=== PATIENT | female | born 1945 | race Caucasian/White ===

== ENCOUNTER 2021-03-17 13:24 | Inpatient (IN) | payer MEDICARE, OTHER ==
[2021-03-17] MEDS ORDERED: Zofran 4 MG/2 ML VIAL IV ONE (13:41)
[2021-03-17] MEDS ORDERED: Hydromorphone 1 mg/ml Injection IV ONE (13:41)
[2021-03-17] MEDS ORDERED: Sodium Chloride 0.9% 1000 ML 1,000 ML IV STA (13:41)
[2021-03-17 14:13] LABS: Absolute Neutrophil Ct (ANC) 18.41 (1.4-6.9); BASOPHIL % 0.1 % (0.0-0.4); Basophil (Absolute #) 0.02 (0-0.4); Eosinophil (Absolute #) 0 (0-0.5); Hematocrit 47.6 % (35-47); Hemoglobin 16.4 gm/dl (12.0-16.0); Lymphocyte (Absolute #) 0.41 (1.0-4.6); Mean Cell Volume 104.6 fl (78-100); Mean Corpuscular Hgb Concent. 34.5 g/dl (32-36); Mean Platelet Volume 10.1 fl (7.5-11.0); Monocyte (Absolute #) 1.32 (0.0-1.3); Monocytes % 6.5 % (0.0-12.0); Neutrophil % 91.4 % (36.0-66.0); Platelet Count 288 K/mm3 (150-450); Red Blood Count 4.55 M/mm3 (4.1-5.4); Red Cell Distribution Width 15.1 % (11.5-14.0); White Blood Count 20.2 K/mm3 (4.0-10.5)
[2021-03-17] MEDS ORDERED: Zofran 4 MG/2 ML VIAL ONE (14:14)
[2021-03-17] MEDS ORDERED: Hydromorphone 1 mg/ml Injection ONE (14:15)
[2021-03-17] MEDS ORDERED: Sodium Chloride 0.9% 1000 ML 1,000 ML ONE (14:15)
--- NOTE | 2021-03-17 14:16 | XRAY ---
Indication: Abdomen pain, nausea, and vomiting. Comparison: October 23, 2019. Portable apical lordotic chest remains clear. Heart not enlarged again with tortuous descending aorta. Bony thorax intact again with mild degenerative changes, double curvature scoliosis, and incompletely visualized lumbar fusion hardware. Impression: Continued nonacute chest with chronic features.
[2021-03-17 14:57] LABS: Slide Review 1 YES
[2021-03-17 14:59] LABS: ALBUMIN 5.4 g/dL (3.5-5.0); ALKALINE PHOSPHATASE 65 U/L (38-126); AMYLASE 56 U/L (30-110); ANION GAP 20.2 MEQ/L (5-15); BLOOD UREA NITROGEN 25 mg/dL (7-17); CHLORIDE 99 mmol/L (98-107); Carbon Dioxide 24 mmol/L (22-30); Creatinine 1 0.72 mg/dL (0.52-1.04); EST GLOMERULAR FILTRATION RATE > 60.0 ML/MIN; Glucose 168 mg/dL (74-106); LIPASE 37 U/L (23-300); SGOT/AST 32 U/L (14-36); SGPT/ALT 18 U/L (0-35); SODIUM 138 mmol/L (137-145); Total Protein 8.8 g/dL (6.3-8.2)
--- NOTE | 2021-03-17 16:28 | XRAY ---
Indication: Abdomen pain, constipation, nausea, and vomiting. Multiple contiguous axial images obtained through the abdomen and pelvis using 80 cc Isovue 370 contrast. Comparison: None Lung bases demonstrates mild scattered subsegmental atelectasis/scarring. No infiltrate or effusion. Heart not enlarged. Stomach and small bowel loops are markedly distended with small bowel loops up to 4.3 cm diameter with asynchronous fluid leveling favoring small bowel obstruction. Transition point mid pelvis. Right hemicolon demonstrates mild fecal debris and bowel gas. Appendectomy and hysterectomy reported. No free fluid/air. Right kidney demonstrates at least 3 cysts, largest in the upper pole measuring 2.3 cm. Remaining liver, gallbladder, pancreas, spleen, adrenal glands, kidneys, ureters, and bladder are unremarkable. Mild scattered aortoiliac calcifications. No AAA or pathological retroperitoneal lymphadenopathy. Osseous structures demonstrates osteopenia, mild dextrorotoscoliosis centered at L3, mild/moderate multilevel thoracolumbar degenerative spondylosis, minimal grade 1 L3/L4 spondylolisthesis, L3-L4 posterior fusion with intact hardware, right hip arthroplasty with intact bipolar prosthesis/acetabular screw, and mild left hip degenerative arthropathy. Impression: 1. CT findings as detailed favoring distal small bowel obstruction. 2. Incidental right renal cysts and chronic bony findings.
--- NOTE | 2021-03-17 16:43 | ERPHSYRPT ---
- History of Present Illness Time Seen by Provider: 03/17/21 13:35 Historian: patient Exam Limitations: no limitations Patient Subjective Stated Complaint: Pt states that she woke up this am at approx 0300 vomiting, she states that she has vomited approx 10 times, pain to her RUQ Triage Nursing Assessment: Pt brought to the ER by her son, tachypnea, rates abdominal pain as 4/10, abdomen distended x2 days, pain to RUQ and tender to RLQ with palpatation, pulses normal, skin n/w/d Physician History: Patient is a 75-year-old female who has had abdominal distention and some pain for approximately 3 days. She started vomiting at 3 AM has vomited at least 10 times today. She denies any fever chills but says she has had sweats. Patient states she has not been passing gas or having bowel movements. Timing/Duration: day(s) (3), worse Activities at Onset: none Quality: cramping, pressure Abdominal Pain Onset Location: generalized abdomen Pain Radiation: no radiation Severity of Pain-Max: severe Severity of Pain-Current: moderate Modifying Factors: Improves With: vomiting Associated Symptoms: vomiting Previous symptoms: no prior history Allergies/Adverse Reactions: No Known Drug Allergies Allergy (Verified 03/17/21 13:32) Home Medications: Acetaminophen 500 mg [Tylenol Extra Strength 500 mg] 1 tab PO Q4HPRN PRN 10/15/13 [History] Calcium Carbonate/Vitamin D3 [Calcium 600 + Vit D Tablet] 1 each PO DAILY 10/15/13 [History] Celecoxib [Celebrex] 200 mg PO DAILY 10/15/13 [History] Fiber [Fiber Off] 1 each PO DAILY 10/15/13 [History] Levothyroxine Sodium 50 Mcg [Synthroid 50 Mcg] 50 mcg PO DAILY 10/15/13 [History] Methocarbamol 2 tab PO BID PRN 10/15/13 [History] Multivit with Calcium,Iron,Min [Women's Daily Multivitamin] 1 each PO DAILY 10/15/13 [History] PANTOPRAZOLE 40 mg Tablet [Protonix 40MG Tablet] 40 mg PO DAILY 10/15/13 [History] Simvastatin 40 mg [Zocor 40 mg] 40 mg PO DAILY 10/15/13 [History] Imipramine HCl 150 mg PO QHS 12/11/17 [History] Methotrexate Sodium 2.5 mg [Trexall 2.5 mg] 15 mg PO DAILY 12/11/17 [History] Aspirin EC 81 mg [Ecotrin 81 mg] 81 mg PO DAILY 03/17/21 [History] Fluticasone/Vilanterol [Breo Ellipta 100-25 Mcg INH] 1 inh PO UD 03/17/21 [History] Losartan Potassium [Cozaar] 25 mg PO DAILY 03/17/21 [History] Omeprazole 40 mg PO DAILY 03/17/21 [History] Oxybutynin Chloride 5 mg PO TID 03/17/21 [History] Travel Risk - International Travel Have you traveled outside of the country in past 3 weeks: No - Coronavirus Screening Are you exhibiting any of the following symptoms?: No Close contact with a COVID-19 positive Pt in past 14-21 Days: No - Vaccine Status Have you recieved a Covid-19 vaccination: Yes [employer] 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[employer] - Vaccination Dates Date of 2cond Vaccination (if applicable): 10/2020 - Review of Systems Constitutional: Night Sweats Eyes: No Symptoms Ears, Nose, & Throat: No Symptoms Respiratory: No Cough, No Dyspnea Cardiac: No Chest Pain, No Edema, No Syncope Abdominal/Gastrointestinal: Abdominal Pain, Nausea, Vomiting, Other (Distention) Genitourinary Symptoms: No Dysuria Musculoskeletal: No Back Pain, No Neck Pain Skin: No Rash Neurological: No Dizziness, No Focal Weakness, No Sensory Changes Psychological: No Symptoms Endocrine: No Symptoms Hematologic/Lymphatic: No Symptoms Immunological/Allergic: No Symptoms All Other Systems: Reviewed and Negative - Past Medical History Pertinent Past Medical History: Yes Neurological History: No Pertinent History ENT History: No Pertinent History Cardiac History: No Pertinent History Respiratory History: COPD Endocrine Medical History: Hypothyroidism Musculoskeletal History: Arthritis GI Medical History: GERD History: No Pertinent History Psycho-Social History: Anxiety Female Reproductive Disorders: Other - Past Surgical History Past Surgical History: Yes Neuro Surgical History: No Pertinent History Cardiac: No Pertinent History Respiratory: No Pertinent History Gastrointestinal: Appendectomy Genitourinary: No Pertinent History Musculoskeletal: Orthopedic Surgery Female Surgical History: Hysterectomy, Tubal Ligation Other Surgical History: back surgery x two{ stenosis},left foot nerve release,le ft hand trigger finger release,A&P repair-colporrhaphy,childbirth x two - Social History Smoking Status: Current every day smoker How long have you smoked: 40 Exposure to second hand smoke: Yes Drug Use: none Patient Lives Alone: Yes - Female History Hx Now: No - Nursing Vital Signs Nursing Vital Signs: Initial Vital Signs Temperature 96.8 F 03/17/21 13:25 Pulse Rate 86 03/17/21 13:25 Respiratory Rate 28 H 03/17/21 13:25 O2 Sat by Pulse Oximetry 97 03/17/21 13:25 Pain Scale Pain Intensity 3 - Physical Exam General Appearance: mild distress Eye Exam: PERRL/EOMI, eyes nml inspection Ears, Nose, Throat Exam: normal ENT inspection, pharynx normal, moist mucous membranes Neck Exam: normal inspection, non-tender, supple, full range of motion Respiratory Exam: normal breath sounds, lungs clear, No respiratory distress Cardiovascular Exam: regular rate/rhythm, normal heart sounds Gastrointestinal/Abdomen Exam: tenderness, distention, guarding, rebound, No normal bowel sounds Pelvic Exam: not done Rectal Exam: deferred Back Exam: normal inspection, normal range of motion Extremity Exam: normal inspection, normal range of motion Neurologic Exam: alert, oriented x 3, cooperative Skin Exam: normal color, warm, dry Lymphatic Exam: adenopathy SpO2 Interpretation: normal SpO2: 92 O2 Delivery: Room Air - Course Nursing assessment & vital signs reviewed: Yes EKG Interpreted by Me: RATE (88), Sinus Rhythm, NORMAL AXIS, NORMAL INTERVALS, NORMAL QRS, Other (Recurrent PVCs) - Radiology Exams Chest X-ray Interpretation: Other (X-ray shows no acute finding only chronic changes.) - CT Exams Abdomen/Pelvis CT Interpretation: Other (CT scan of the abdomen pelvis shows a small bowel obstruction distally) Ordered Tests: Active Orders 24 hr Category Date Time Status EKG-ER Only STAT Care 03/17/21 13:41 Active IV Insertion STAT Care 03/17/21 13:41 Active ABDOMEN AND PELVIS W CONTRAST [CT] Routine Exams 03/17/21 15:44 Completed CHEST 1 VIEW (PORTABLE) Stat Exams 03/17/21 13:42 Completed AMYLASE Stat Lab 03/17/21 14:00 Completed CBC W DIFF Stat Lab 03/17/21 14:00 Completed CMP Stat Lab 03/17/21 14:00 Completed LIPASE Stat Lab 03/17/21 14:00 Completed Lactic Acid Stat Lab 03/17/21 13:41 Completed TROPONIN Q3H Lab 03/17/21 14:00 Completed TROPONIN Q3H Lab 03/17/21 16:45 Ordered TROPONIN Q3H Lab 03/17/21 19:45 Ordered TROPONIN Q3H Lab 03/17/21 22:45 Ordered TROPONIN Q3H Lab 03/18/21 01:45 Ordered UA W/RFX UR CULTURE Stat Lab 03/17/21 13:42 Ordered Medication Summary Discontinued Medications Generic Name Dose Route Start Last Admin Trade Name Freq PRN Reason Stop Dose Admin Hydromorphone HCl 1 mg 03/17/21 13:41 03/17/21 14:20 Hydromorphone 1 Mg/Ml Injection IV 03/17/21 13:42 1 mg STAT ONE Administration Hydromorphone HCl Confirm 03/17/21 14:15 Hydromorphone 1 Mg/Ml Injection Administered 03/17/21 14:16 Dose 1 mg .ROUTE .STK-MED ONE Sodium Chloride 1,000 mls @ 999 mls/hr 03/17/21 13:41 03/17/21 14:18 Sodium Chloride 0.9% 1000 Ml IV 03/17/21 14:41 999 mls/hr .Q1H1M STA Administration Sodium Chloride Confirm 03/17/21 14:15 Sodium Chloride 0.9% 1000 Ml Administered 03/17/21 14:16 Dose 1,000 mls @ ud .ROUTE .STK-MED ONE Ondansetron HCl 4 mg 03/17/21 13:41 03/17/21 14:19 Zofran 4 Mg/2 Ml Vial IV 03/17/21 13:42 4 mg STAT ONE Administration Ondansetron HCl Confirm 03/17/21 14:14 Zofran 4 Mg/2 Ml Vial Administered 03/17/21 14:15 Dose 4 mg .ROUTE .STK-MED ONE Lab/Rad Data: Laboratory Result Diagrams 03/17/21 14:00 03/17/21 14:00 Laboratory Results 03/17/21 03/17/21 03/17/21 Range/Units Unknown 14:00 14:00 WBC (4.0-10.5) K/mm3 RBC (4.1-5.4) M/mm3 Hgb (12.0-16.0) gm/dl Hct (35-47) % MCV (78-100) fl MCH (26-32) pg MCHC (32-36) g/dl RDW (11.5-14.0) % Plt Count (150-450) K/mm3 MPV (7.5-11.0) fl Gran % (36.0-66.0) % Eos # (Auto) (0-0.5) Absolute Lymphs (auto) (1.0-4.6) Absolute Monos (auto) (0.0-1.3) Lymphocytes % (24.0-44.0) % Monocytes % (0.0-12.0) % Eosinophils % (0.00-5.0) % Basophils % (0.0-0.4) % Absolute Granulocytes (1.4-6.9) Basophils # (0-0.4) Sodium 138 (137-145) mmol/L Potassium 5.0 (3.5-5.1) mmol/L Chloride 99 (98-107) mmol/L Carbon Dioxide 24 (22-30) mmol/L Anion Gap 20.2 H (5-15) MEQ/L BUN 25 H (7-17) mg/dL Creatinine 0.72 (0.52-1.04) mg/dL Estimated GFR > 60.0 ML/MIN Glucose 168 H (74-106) mg/dL Lactic Acid (0.4-2.0) Calcium 11.0 H (8.4-10.2) mg/dL Total Bilirubin 0.50 (0.2-1.3) mg/dL AST 32 (14-36) U/L ALT 18 (0-35) U/L Alkaline Phosphatase 65 (38-126) U/L Troponin I < 0.012 (0.000-0.034) ng/mL Serum Total Protein 8.8 H (6.3-8.2) g/dL Albumin 5.4 H (3.5-5.0) g/dL Amylase 56 (30-110) U/L Lipase 37 (23-300) U/L SARS-CoV-2 (PCR) NEGATIVE (NEGATIVE) Slides for Path Review 03/17/21 03/17/21 Range/Units 14:00 13:41 WBC 20.2 H (4.0-10.5) K/mm3 RBC 4.55 (4.1-5.4) M/mm3 Hgb 16.4 H (12.0-16.0) gm/dl Hct 47.6 H (35-47) % MCV 104.6 H (78-100) fl MCH 36.0 H (26-32) pg MCHC 34.5 (32-36) g/dl RDW 15.1 H (11.5-14.0) % Plt Count 288 (150-450) K/mm3 MPV 10.1 (7.5-11.0) fl Gran % 91.4 H (36.0-66.0) % Eos # (Auto) 0 (0-0.5) Absolute Lymphs (auto) 0.41 L (1.0-4.6) Absolute Monos (auto) 1.32 H (0.0-1.3) Lymphocytes % 2.0 L (24.0-44.0) % Monocytes % 6.5 (0.0-12.0) % Eosinophils % 0.0 (0.00-5.0) % Basophils % 0.1 (0.0-0.4) % Absolute Granulocytes 18.41 H (1.4-6.9) Basophils # 0.02 (0-0.4) Sodium (137-145) mmol/L Potassium (3.5-5.1) mmol/L Chloride (98-107) mmol/L Carbon Dioxide (22-30) mmol/L Anion Gap (5-15) MEQ/L BUN (7-17) mg/dL Creatinine (0.52-1.04) mg/dL Estimated GFR ML/MIN Glucose (74-106) mg/dL Lactic Acid 1.8 (0.4-2.0) Calcium (8.4-10.2) mg/dL Total Bilirubin (0.2-1.3) mg/dL AST (14-36) U/L ALT (0-35) U/L Alkaline Phosphatase (38-126) U/L Troponin I (0.000-0.034) ng/mL Serum Total Protein (6.3-8.2) g/dL Albumin (3.5-5.0) g/dL Amylase (30-110) U/L Lipase (23-300) U/L SARS-CoV-2 (PCR) (NEGATIVE) Slides for Path Review YES - Progress Progress: unchanged Discussed with : James Will see patient in: hospital (full admit) - Departure Departure Disposition: In-patient Admission Clinical Impression: Small bowel obstruction Condition: Fair Critical Care Time: No Referrals: SARAH MATT [Primary Care Provider] -
--- NOTE | 2021-03-17 18:28 | PCM.CONS ---
History of Present Illness - Reason for Consult Chief Complaint: SBO Requesting Provider: NATI COOK Consulting Provider: LINDY PIMENTEL MD History of Present Illness: hx per chart review, d/w pt 1 day and pain progressive obstructive sx. nausea nbnb emesis today. last bm 03/16. no flatus today. hx uterine prolapse surgery, then later hysterectomy. no bowel surgeries. no admissions for SBO. pain is improved since ng placement. methotrexate for arthritis "- History of Present Illness Time Seen by Provider: 03/17/21 13:35 Historian: patient Exam Limitations: no limitations Patient Subjective Stated Complaint: Pt states that she woke up this am at approx 0300 vomiting, she states that she has vomited approx 10 times, pain to her RUQ Triage Nursing Assessment: Pt brought to the ER by her son, tachypnea, rates abdominal pain as 4/10, abdomen distended x2 days, pain to RUQ and tender to RLQ with palpatation, pulses normal, skin n/w/d Physician History: Patient is a 75-year-old female who has had abdominal distention and some pain for approximately 3 days. She started vomiting at 3 AM has vomited at least 10 times today. She denies any fever chills but says she has had sweats. Patient states she has not been passing gas or having bowel movements. Timing/Duration: day(s) (3), worse Activities at Onset: none Quality: cramping, pressure Abdominal Pain Onset Location: generalized abdomen Pain Radiation: no radiation Severity of Pain-Max: severe Severity of Pain-Current: moderate Modifying Factors: Improves With: vomiting Associated Symptoms: vomiting Previous symptoms: no prior history Allergies/Adverse Reactions: No Known Drug Allergies Allergy (Verified 03/17/21 13:32) Home Medications: Acetaminophen 500 mg [Tylenol Extra Strength 500 mg] 1 tab PO Q4HPRN PRN 10/15/13 [History] Calcium Carbonate/Vitamin D3 [Calcium 600 + Vit D Tablet] 1 each PO DAILY 10/15/13 [History] Celecoxib [Celebrex] 200 mg PO DAILY 10/15/13 [History] Fiber [Fiber Off] 1 each PO DAILY 10/15/13 [History] Levothyroxine Sodium 50 Mcg [Synthroid 50 Mcg] 50 mcg PO DAILY 10/15/13 [History] Methocarbamol 2 tab PO BID PRN 10/15/13 [History] Multivit with Calcium,Iron,Min [Women's Daily Multivitamin] 1 each PO DAILY 10/15/13 [History] PANTOPRAZOLE 40 mg Tablet [Protonix 40MG Tablet] 40 mg PO DAILY 10/15/13 [History] Simvastatin 40 mg [Zocor 40 mg] 40 mg PO DAILY 10/15/13 [History] Imipramine HCl 150 mg PO QHS 12/11/17 [History] Methotrexate Sodium 2.5 mg [Trexall 2.5 mg] 15 mg PO DAILY 12/11/17 [History] Aspirin EC 81 mg [Ecotrin 81 mg] 81 mg PO DAILY 03/17/21 [History] Fluticasone/Vilanterol [Breo Ellipta 100-25 Mcg INH] 1 inh PO UD 03/17/21 [History] Losartan Potassium [Cozaar] 25 mg PO DAILY 03/17/21 [History] Omeprazole 40 mg PO DAILY 03/17/21 [History] Oxybutynin Chloride 5 mg PO TID 03/17/21 [History] Travel Risk - International Travel Have you traveled outside of the country in past 3 weeks: No - Coronavirus Screening Are you exhibiting any of the following symptoms?: No Close contact with a COVID-19 positive Pt in past 14-21 Days: No - Vaccine Status Have you recieved a Covid-19 vaccination: Yes 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 Dates Date of 2cond Vaccination (if applicable): 10/2020 - Review of Systems Constitutional: Night Sweats Eyes: No Symptoms Ears, Nose, & Throat: No Symptoms Respiratory: No Cough, No Dyspnea Cardiac: No Chest Pain, No Edema, No Syncope Abdominal/Gastrointestinal: Abdominal Pain, Nausea, Vomiting, Other (Distention) Genitourinary Symptoms: No Dysuria Musculoskeletal: No Back Pain, No Neck Pain Skin: No Rash Neurological: No Dizziness, No Focal Weakness, No Sensory Changes Psychological: No Symptoms Endocrine: No Symptoms Hematologic/Lymphatic: No Symptoms Immunological/Allergic: No Symptoms All Other Systems: Reviewed and Negative - Past Medical History Pertinent Past Medical History: Yes Neurological History: No Pertinent History ENT History: No Pertinent History Cardiac History: No Pertinent History Respiratory History: COPD Endocrine Medical History: Hypothyroidism Musculoskeletal History: Arthritis GI Medical History: GERD History: No Pertinent History Psycho-Social History: Anxiety Female Reproductive Disorders: Other - Past Surgical History Past Surgical History: Yes Neuro Surgical History: No Pertinent History Cardiac: No Pertinent History Respiratory: No Pertinent History Gastrointestinal: Appendectomy Genitourinary: No Pertinent History Musculoskeletal: Orthopedic Surgery Female Surgical History: Hysterectomy, Tubal Ligation Other Surgical History: back surgery x two{ stenosis},left foot nerve release,left hand trigger finger release,A&P repair-colporrhaphy,childbirth x two - Social History Smoking Status: Current every day smoker How long have you smoked: 40 Exposure to second hand smoke: Yes Drug Use: none Patient Lives Alone: Yes - Female History Hx Now: No - Nursing Vital Signs Nursing Vital Signs: ". Medications & Allergies Home Medications: Home Medication List Acetaminophen 500 mg [Tylenol Extra Strength 500 mg] 1 tab PO Q4HPRN PRN 10/15/13 [History Confirmed 03/17/21] Calcium Carbonate/Vitamin D3 [Calcium 600 + Vit D Tablet] 1 each PO DAILY 10/15/13 [History Confirmed 03/17/21] Celecoxib [Celebrex] 200 mg PO DAILY 10/15/13 [History Confirmed 03/17/21] Fiber [Fiber Off] 1 each PO DAILY 10/15/13 [History Confirmed 03/17/21] Levothyroxine Sodium 50 Mcg [Synthroid 50 Mcg] 50 mcg PO DAILY 10/15/13 [History Confirmed 03/17/21] Methocarbamol 2 tab PO BID PRN 10/15/13 [History Confirmed 03/17/21] Multivit with Calcium,Iron,Min [Women's Daily Multivitamin] 1 each PO DAILY 10/15/13 [History Confirmed 03/17/21] PANTOPRAZOLE 40 mg Tablet [Protonix 40MG Tablet] 40 mg PO DAILY 10/15/13 [History Confirmed 03/17/21] Simvastatin 40 mg [Zocor 40 mg] 40 mg PO DAILY 10/15/13 [History Confirmed 03/17/21] Imipramine HCl 150 mg PO QHS 12/11/17 [History Confirmed 03/17/21] Methotrexate Sodium 2.5 mg [Trexall 2.5 mg] 15 mg PO DAILY 12/11/17 [History Confirmed 03/17/21] Aspirin EC 81 mg [Ecotrin 81 mg] 81 mg PO DAILY 03/17/21 [History Confirmed 03/17/21] Fluticasone/Vilanterol [Breo Ellipta 100-25 Mcg INH] 1 inh PO UD 03/17/21 [History Confirmed 03/17/21] Losartan Potassium [Cozaar] 25 mg PO DAILY 03/17/21 [History Confirmed 03/17/21] Omeprazole 40 mg PO DAILY 03/17/21 [History Confirmed 03/17/21] Oxybutynin Chloride 5 mg PO TID 03/17/21 [History Confirmed 03/17/21] Allergies/Adverse Reactions: Allergies Allergy/AdvReac Type Severity Reaction Status Date / Time No Known Drug Allergies Allergy Verified 03/17/21 13:32 - Past Medical History Past Medical History: Yes Neurological History: No Pertinent History ENT History: No Pertinent History Cardiac History: No Pertinent History Respiratory History: COPD Endocrine Medical History: Hypothyroidism Musculoskelatal History: Arthritis GI Medical History: GERD History: No Pertinent History Pyscho-Social History: Anxiety Reproductive Disorders: Other - Female History Are you now?: No - Past Surgical History Past Surgical History: Yes Neuro Surgical History: No Pertinent History Cardiac History: No Pertinent History Respiratory Surgery: No Pertinent History GI Surgical History: Appendectomy Genitourinary Surgical Hx: No Pertinent History Musculskeletal Surgical Hx: Orthopedic Surgery Female Surgical History: Hysterectomy, Tubal Ligation Other Surgical History: back surgery x two{ stenosis},left foot nerve release,left hand trigger finger release,A&P repair-colporrhaphy,childbirth x two - Social History Smoking Status: Current every day smoker How long have you smoked: 40 Exposure to second hand smoke: Yes Alcohol: None Drug Use: none - Physical Exam Vital Signs: Vital Signs - 24 hr Temp Pulse Resp BP Pulse Ox 03/17/21 18:10 98.2 F 88 20 137/70 94 L 03/17/21 17:10 74 18 92 L 03/17/21 16:46 92 L 03/17/21 16:46 86 18 151/91 98 03/17/21 14:39 93 H 24 131/85 92 L 03/17/21 14:26 91 H 24 90 L 03/17/21 13:25 96.8 F 86 28 H 97 General Appearance: no apparent distress Neurologic Exam: alert, oriented x 3, cooperative Eye Exam: eyes nml inspection, No scleral icterus Ears, Nose, Throat Exam: normal ENT inspection Neck Exam: normal inspection Respiratory Exam: No respiratory distress, No accessory muscle use Cardiovascular Exam: regular rate/rhythm Gastrointestinal/Abdomen Exam: soft, distention, No tenderness Pelvic Exam: not done Rectal Exam: deferred Extremity Exam: normal inspection Skin Exam: normal color Results - Labs Lab/Micro Results: Lab Results-Last 24 Hours 03/17/21 03/17/21 03/17/21 Range/Units 13:41 14:00 14:00 WBC 20.2 H (4.0-10.5) K/mm3 RBC 4.55 (4.1-5.4) M/mm3 Hgb 16.4 H (12.0-16.0) gm/dl Hct 47.6 H (35-47) % MCV 104.6 H (78-100) fl MCH 36.0 H (26-32) pg MCHC 34.5 (32-36) g/dl RDW 15.1 H (11.5-14.0) % Plt Count 288 (150-450) K/mm3 MPV 10.1 (7.5-11.0) fl Gran % 91.4 H (36.0-66.0) % Eos # (Auto) 0 (0-0.5) Absolute Lymphs (auto) 0.41 L (1.0-4.6) Absolute Monos (auto) 1.32 H (0.0-1.3) Lymphocytes % 2.0 L (24.0-44.0) % Monocytes % 6.5 (0.0-12.0) % Eosinophils % 0.0 (0.00-5.0) % Basophils % 0.1 (0.0-0.4) % Absolute Granulocytes 18.41 H (1.4-6.9) Basophils # 0.02 (0-0.4) Sodium 138 (137-145) mmol/L Potassium 5.0 (3.5-5.1) mmol/L Chloride 99 (98-107) mmol/L Carbon Dioxide 24 (22-30) mmol/L Anion Gap 20.2 H (5-15) MEQ/L BUN 25 H (7-17) mg/dL Creatinine 0.72 (0.52-1.04) mg/dL Estimated GFR > 60.0 ML/MIN Glucose 168 H (74-106) mg/dL Lactic Acid 1.8 (0.4-2.0) Calcium 11.0 H (8.4-10.2) mg/dL Total Bilirubin 0.50 (0.2-1.3) mg/dL AST 32 (14-36) U/L ALT 18 (0-35) U/L Alkaline Phosphatase 65 (38-126) U/L Troponin I (0.000-0.034) ng/mL Serum Total Protein 8.8 H (6.3-8.2) g/dL Albumin 5.4 H (3.5-5.0) g/dL Amylase 56 (30-110) U/L Lipase 37 (23-300) U/L SARS-CoV-2 (PCR) (NEGATIVE) Slides for Path Review YES 03/17/21 03/17/21 Range/Units 14:00 Unknown WBC (4.0-10.5) K/mm3 RBC (4.1-5.4) M/mm3 Hgb (12.0-16.0) gm/dl Hct (35-47) % MCV (78-100) fl MCH (26-32) pg MCHC (32-36) g/dl RDW (11.5-14.0) % Plt Count (150-450) K/mm3 MPV (7.5-11.0) fl Gran % (36.0-66.0) % Eos # (Auto) (0-0.5) Absolute Lymphs (auto) (1.0-4.6) Absolute Monos (auto) (0.0-1.3) Lymphocytes % (24.0-44.0) % Monocytes % (0.0-12.0) % Eosinophils % (0.00-5.0) % Basophils % (0.0-0.4) % Absolute Granulocytes (1.4-6.9) Basophils # (0-0.4) Sodium (137-145) mmol/L Potassium (3.5-5.1) mmol/L Chloride (98-107) mmol/L Carbon Dioxide (22-30) mmol/L Anion Gap (5-15) MEQ/L BUN (7-17) mg/dL Creatinine (0.52-1.04) mg/dL Estimated GFR ML/MIN Glucose (74-106) mg/dL Lactic Acid (0.4-2.0) Calcium (8.4-10.2) mg/dL Total Bilirubin (0.2-1.3) mg/dL AST (14-36) U/L ALT (0-35) U/L Alkaline Phosphatase (38-126) U/L Troponin I < 0.012 (0.000-0.034) ng/mL Serum Total Protein (6.3-8.2) g/dL Albumin (3.5-5.0) g/dL Amylase (30-110) U/L Lipase (23-300) U/L SARS-CoV-2 (PCR) NEGATIVE (NEGATIVE) Slides for Path Review - Radiology Impressions Radiology Exams & Impressions: Radiology Procedures Category Date Time Status ABDOMEN AND PELVIS W CONTRAST [CT] Routine Exams 03/17/21 15:44 Completed CHEST 1 VIEW (PORTABLE) Stat Exams 03/17/21 13:42 Completed NG TUBE PLACEMENT (RAD) Stat Exams 03/17/21 17:46 Taken Assessment/Plan (1) Small bowel obstruction Current Visit: Yes Status: Acute Assessment & Plan: 75yo female SBO. hx hysterectomy remotely. benign exam nontender. leukocytosis 20, CT with transition mid small bowel. -attempt at conservative tx, supportive care, cont NG to LIS for now. may get sbft if not opening 1-2 days Code(s): K56.609 - UNSP INTESTNL OBST, UNSP TO PARTIAL VERSUS COMPLETE OBST
[2021-03-17] MEDS ORDERED: Zofran 4 MG/2 ML VIAL IV PRN (18:45)
[2021-03-17] MEDS ORDERED: CHLORASEPTIC SPRAY 180 ML PO PRN (18:45)
[2021-03-17] MEDS: Lactated Ringers 1,000 ML IV SCH (19:47)
[2021-03-17] MEDS: Hydromorphone 1 mg/ml Injection IV PRN (22:10)
[2021-03-18] MEDS: Lactated Ringers 1,000 ML IV SCH ×3 (03:50→19:49)
[2021-03-18] MEDS ORDERED: PROVENTIL 2.5 MG/3 ML NEB IH PRN (04:17)
[2021-03-18] MEDS ORDERED: PROVENTIL 2.5 MG/3 ML NEB IH ONE ×2 (04:21→04:30)
[2021-03-18] MEDS: Ativan 2 MG/1 ML VIAL IV PRN ×2 (04:35→20:27)
[2021-03-18 04:57] LABS: Hematocrit 45.2 % (35-47); Mean Cell Volume 106.9 fl (78-100); Mean Corpuscular Hemoglobin 35.5 pg (26-32); Mean Corpuscular Hgb Concent. 33.2 g/dl (32-36); Mean Platelet Volume 10.2 fl (7.5-11.0); Platelet Count 296 K/mm3 (150-450); Red Blood Count 4.23 M/mm3 (4.1-5.4); Red Cell Distribution Width 15.1 % (11.5-14.0)
[2021-03-18 04:58] LABS: Appearance CLEAR (CLEAR); Bilirubin NEGATIVE (NEGATIVE); Blood NEGATIVE Ery/ul (0-5); Glucose NEGATIVE (NEGATIVE); Ketones NEGATIVE (NEGATIVE); Leukocyte Esterase NEGATIVE (NEGATIVE); Mucus SLIGHT /HPF (NEGATIVE); Nitrite NEGATIVE (NEGATIVE); Protein,Urine Dip 30 (Negative); Specific Gravity 1.048 (1.005-1.025); Urobilinogen NEGATIVE mg/dL (0-1)
[2021-03-18 04:59] LABS: Bacteria NONE SEEN /HPF (NEGATIVE); RBC NONE SEEN /HPF (0-2)
[2021-03-18 05:18] LABS: ALBUMIN 4.4 g/dL (3.5-5.0); ALKALINE PHOSPHATASE 51 U/L (38-126); AMYLASE 41 U/L (30-110); ANION GAP 14.3 MEQ/L (5-15); BLOOD UREA NITROGEN 22 mg/dL (7-17); CHLORIDE 98 mmol/L (98-107); Calcium 9.7 mg/dL (8.4-10.2); Carbon Dioxide 33 mmol/L (22-30); Creatinine 1 0.64 mg/dL (0.52-1.04); EST GLOMERULAR FILTRATION RATE > 60.0 ML/MIN; Glucose 133 mg/dL (74-106); LIPASE 23 U/L (23-300); Potassium 4.4 mmol/L (3.5-5.1); SGOT/AST 25 U/L (14-36); SGPT/ALT 15 U/L (0-35); SODIUM 140 mmol/L (137-145); Total Protein 7.2 g/dL (6.3-8.2)
[2021-03-18] MEDS: PROVENTIL 2.5 MG/3 ML NEB IH SCH ×4 (06:42→19:00)
[2021-03-18] MEDS ORDERED: CHLORASEPTIC SPRAY 180 ML PO PRN (07:00)
[2021-03-18] MEDS: Hydromorphone 1 mg/ml Injection IV PRN ×3 (07:10→17:32)
--- NOTE | 2021-03-18 07:47 | PCM.HP ---
History of Present Illness - Chief Complaint Chief Complaint: SBO History of Present Illness: is a 75 year old female with no local physician, she arrived yesterday to the ER with complaints of abd pain and persistent vomiting, found to have SBO, NG has been inserted and surgery was consulted, she was seen by Dr Yonis Curtis yesterday who recommends conservative management. her pain is controlled currently and nausea and vomiting have resolved since NG placement. she has no history of blood in stool, no diarrhea or constipation. - Review of Systems Constitutional: No Fever, No Chills Respiratory: No Cough, No Short Of Breath Cardiac: No Chest Pain, No Edema, No Syncope Abdominal/Gastrointestinal: Abdominal Pain, Nausea, Vomiting Skin: No Rash All Other Systems: Reviewed and Negative Medications & Allergies Home Medications: Home Medication List Acetaminophen 500 mg [Tylenol Extra Strength 500 mg] 1 tab PO Q4HPRN PRN 10/15/13 [History Confirmed 03/17/21] Calcium Carbonate/Vitamin D3 [Calcium 600 + Vit D Tablet] 1 each PO DAILY 10/15/13 [History Confirmed 03/17/21] Celecoxib [Celebrex] 200 mg PO DAILY 10/15/13 [History Confirmed 03/17/21] Fiber [Fiber Off] 1 each PO DAILY 10/15/13 [History Confirmed 03/17/21] Levothyroxine Sodium 50 Mcg [Synthroid 50 Mcg] 50 mcg PO DAILY 10/15/13 [History Confirmed 03/17/21] Methocarbamol 2 tab PO BID PRN 10/15/13 [History Confirmed 03/17/21] Multivit with Calcium,Iron,Min [Women's Daily Multivitamin] 1 each PO DAILY 10/15/13 [History Confirmed 03/17/21] PANTOPRAZOLE 40 mg Tablet [Protonix 40MG Tablet] 40 mg PO DAILY 10/15/13 [History Confirmed 03/17/21] Simvastatin 40 mg [Zocor 40 mg] 40 mg PO DAILY 10/15/13 [History Confirmed 03/17/21] Imipramine HCl 150 mg PO QHS 12/11/17 [History Confirmed 03/17/21] Methotrexate Sodium 2.5 mg [Trexall 2.5 mg] 15 mg PO DAILY 04/23/18 [History Confirmed 03/17/21] Aspirin EC 81 mg [Ecotrin 81 mg] 81 mg PO DAILY 03/17/21 [History Confirmed 03/17/21] Fluticasone/Vilanterol [Breo Ellipta 100-25 Mcg INH] 1 inh PO UD 03/17/21 [History Confirmed 03/17/21] Losartan Potassium [Cozaar] 25 mg PO DAILY 03/17/21 [History Confirmed 03/17/21] Omeprazole 40 mg PO DAILY 03/17/21 [History Confirmed 03/17/21] Oxybutynin Chloride 5 mg PO TID 03/17/21 [History Confirmed 03/17/21] Allergies/Adverse Reactions: Allergies Allergy/AdvReac Type Severity Reaction Status Date / Time DISSOLVABLE SUTURES Allergy Uncoded 03/17/21 18:42 - Past Medical History Past Medical History: Yes Neurological History: No Pertinent History ENT History: No Pertinent History Cardiac History: No Pertinent History Respiratory History: COPD Endocrine Medical History: Hypothyroidism Musculoskelatal History: Arthritis GI Medical History: GERD History: No Pertinent History Pyscho-Social History: Anxiety Reproductive Disorders: Other - Female History Are you now?: No - Past Surgical History Past Surgical History: Yes Neuro Surgical History: No Pertinent History Cardiac History: No Pertinent History Respiratory Surgery: No Pertinent History GI Surgical History: Appendectomy Genitourinary Surgical Hx: No Pertinent History Musculskeletal Surgical Hx: Orthopedic Surgery Female Surgical History: Hysterectomy, Tubal Ligation Other Surgical History: back surgery x two{ stenosis},left foot nerve release,left hand trigger finger release,A&P repair-colporrhaphy,childbirth x two - Social History Smoking Status: Current every day smoker How long have you smoked: 40 Exposure to second hand smoke: Yes Alcohol: None Drug Use: none - Physical Exam Vital Signs: Vital Signs - 24 hr Temp Pulse Resp BP Pulse Ox 03/18/21 07:21 95 03/18/21 06:46 91 H 22 94 L 03/18/21 04:34 70 24 98 03/18/21 03:37 97.9 F 94 H 18 120/66 96 03/17/21 23:34 98.1 F 104 H 16 109/66 92 L 03/17/21 23:20 92 L 03/17/21 23:16 83 L 03/17/21 19:42 98.2 F 88 20 137/70 94 L 03/17/21 18:10 98.2 F 88 20 137/70 94 L 03/17/21 18:06 98.2 F 88 20 137/70 94 L 03/17/21 17:10 74 18 92 L 03/17/21 16:46 92 L 03/17/21 16:46 86 18 151/91 98 03/17/21 14:39 93 H 24 131/85 92 L 03/17/21 14:26 91 H 24 90 L 03/17/21 13:25 96.8 F 86 28 H 97 General Appearance: no apparent distress, other (NG present) Neurologic Exam: alert, cooperative Respiratory Exam: normal breath sounds, lungs clear, No respiratory distress Cardiovascular Exam: regular rate/rhythm, normal heart sounds, normal peripheral pulses Gastrointestinal/Abdomen Exam: soft, tenderness (minimal, diffuse), No normal bowel sounds, No distention Extremity Exam: normal inspection, normal range of motion, pelvis stable Skin Exam: normal color, warm, dry, No rash Results - Labs Lab/Micro Results: Lab Results-Last 24 Hours 03/17/21 03/17/21 03/17/21 Range/Units 13:41 14:00 14:00 WBC 20.2 H (4.0-10.5) K/mm3 RBC 4.55 (4.1-5.4) M/mm3 Hgb 16.4 H (12.0-16.0) gm/dl Hct 47.6 H (35-47) % MCV 104.6 H (78-100) fl MCH 36.0 H (26-32) pg MCHC 34.5 (32-36) g/dl RDW 15.1 H (11.5-14.0) % Plt Count 288 (150-450) K/mm3 MPV 10.1 (7.5-11.0) fl Gran % 91.4 H (36.0-66.0) % Eos # (Auto) 0 (0-0.5) Absolute Lymphs (auto) 0.41 L (1.0-4.6) Absolute Monos (auto) 1.32 H (0.0-1.3) Lymphocytes % 2.0 L (24.0-44.0) % Monocytes % 6.5 (0.0-12.0) % Eosinophils % 0.0 (0.00-5.0) % Basophils % 0.1 (0.0-0.4) % Absolute Granulocytes 18.41 H (1.4-6.9) Basophils # 0.02 (0-0.4) Sodium 138 (137-145) mmol/L Potassium 5.0 (3.5-5.1) mmol/L Chloride 99 (98-107) mmol/L Carbon Dioxide 24 (22-30) mmol/L Anion Gap 20.2 H (5-15) MEQ/L BUN 25 H (7-17) mg/dL Creatinine 0.72 (0.52-1.04) mg/dL Estimated GFR > 60.0 ML/MIN Glucose 168 H (74-106) mg/dL Lactic Acid 1.8 (0.4-2.0) Calcium 11.0 H (8.4-10.2) mg/dL Total Bilirubin 0.50 (0.2-1.3) mg/dL AST 32 (14-36) U/L ALT 18 (0-35) U/L Alkaline Phosphatase 65 (38-126) U/L Troponin I (0.000-0.034) ng/mL Serum Total Protein 8.8 H (6.3-8.2) g/dL Albumin 5.4 H (3.5-5.0) g/dL Amylase 56 (30-110) U/L Lipase 37 (23-300) U/L Urine Color (YELLOW) Urine Appearance (CLEAR) Urine pH (5-6) Ur Specific [place] (1.005-1.025) Urine Protein (Negative) Urine Ketones (NEGATIVE) Urine Blood (0-5) Sammy/ul Urine Nitrite (NEGATIVE) Urine Bilirubin (NEGATIVE) Urine Urobilinogen (0-1) mg/dL Ur Leukocyte Esterase (NEGATIVE) Urine WBC (Auto) (0-5) /HPF Urine RBC (Auto) (0-2) /HPF U Epithel Cells (Auto) (FEW) /HPF Urine Bacteria (Auto) (NEGATIVE) /HPF Urine Mucus (Auto) (NEGATIVE) /HPF Urine Culture Reflexed (NO) Urine Glucose (NEGATIVE) mg/dL SARS-CoV-2 (PCR) (NEGATIVE) Slides for Path Review YES 07/28/21 07/28/21 07/29/21 Range/Units 14:00 Unknown 04:37 WBC (4.0-10.5) K/mm3 RBC (4.1-5.4) M/mm3 Hgb (12.0-16.0) gm/dl Hct (35-47) % MCV (78-100) fl MCH (26-32) pg MCHC (32-36) g/dl RDW (11.5-14.0) % Plt Count (150-450) K/mm3 MPV (7.5-11.0) fl Gran % (36.0-66.0) % Eos # (Auto) (0-0.5) Absolute Lymphs (auto) (1.0-4.6) Absolute Monos (auto) (0.0-1.3) Lymphocytes % (24.0-44.0) % Monocytes % (0.0-12.0) % Eosinophils % (0.00-5.0) % Basophils % (0.0-0.4) % Absolute Granulocytes (1.4-6.9) Basophils # (0-0.4) Sodium (137-145) mmol/L Potassium (3.5-5.1) mmol/L Chloride (98-107) mmol/L Carbon Dioxide (22-30) mmol/L Anion Gap (5-15) MEQ/L BUN (7-17) mg/dL Creatinine (0.52-1.04) mg/dL Estimated GFR ML/MIN Glucose (74-106) mg/dL Lactic Acid (0.4-2.0) Calcium (8.4-10.2) mg/dL Total Bilirubin (0.2-1.3) mg/dL AST (14-36) U/L ALT (0-35) U/L Alkaline Phosphatase (38-126) U/L Troponin I < 0.012 (0.000-0.034) ng/mL Serum Total Protein (6.3-8.2) g/dL Albumin (3.5-5.0) g/dL Amylase (30-110) U/L Lipase (23-300) U/L Urine Color YELLOW (YELLOW) Urine Appearance CLEAR (CLEAR) Urine pH 5.0 (5-6) Ur Specific [place] 1.048 (1.005-1.025) Urine Protein 30 (Negative) Urine Ketones NEGATIVE (NEGATIVE) Urine Blood NEGATIVE (0-5) Sammy/ul Urine Nitrite NEGATIVE (NEGATIVE) Urine Bilirubin NEGATIVE (NEGATIVE) Urine Urobilinogen NEGATIVE (0-1) mg/dL Ur Leukocyte Esterase NEGATIVE (NEGATIVE) Urine WBC (Auto) NONE (0-5) /HPF Urine RBC (Auto) NONE SEEN (0-2) /HPF U Epithel Cells (Auto) NONE (FEW) /HPF Urine Bacteria (Auto) NONE SEEN (NEGATIVE) /HPF Urine Mucus (Auto) SLIGHT (NEGATIVE) /HPF Urine Culture Reflexed NO (NO) Urine Glucose NEGATIVE (NEGATIVE) mg/dL SARS-CoV-2 (PCR) NEGATIVE (NEGATIVE) Slides for Path Review 03/18/21 03/18/21 03/18/21 Range/Units 04:48 04:48 04:50 WBC 10.0 (4.0-10.5) K/mm3 RBC 4.23 (4.1-5.4) M/mm3 Hgb 15.0 (12.0-16.0) gm/dl Hct 45.2 (35-47) % MCV 106.9 H (78-100) fl MCH 35.5 H (26-32) pg MCHC 33.2 (32-36) g/dl RDW 15.1 H (11.5-14.0) % Plt Count 296 (150-450) K/mm3 MPV 10.2 (7.5-11.0) fl Gran % (36.0-66.0) % Eos # (Auto) (0-0.5) Absolute Lymphs (auto) (1.0-4.6) Absolute Monos (auto) (0.0-1.3) Lymphocytes % (24.0-44.0) % Monocytes % (0.0-12.0) % Eosinophils % (0.00-5.0) % Basophils % (0.0-0.4) % Absolute Granulocytes (1.4-6.9) Basophils # (0-0.4) Sodium 140 (137-145) mmol/L Potassium 4.4 (3.5-5.1) mmol/L Chloride 98 (98-107) mmol/L Carbon Dioxide 33 H (22-30) mmol/L Anion Gap 14.3 (5-15) MEQ/L BUN 22 H (7-17) mg/dL Creatinine 0.64 (0.52-1.04) mg/dL Estimated GFR > 60.0 ML/MIN Glucose 133 H (74-106) mg/dL Lactic Acid 1.1 (0.4-2.0) Calcium 9.7 (8.4-10.2) mg/dL Total Bilirubin 0.60 (0.2-1.3) mg/dL AST 25 (14-36) U/L ALT 15 (0-35) U/L Alkaline Phosphatase 51 (38-126) U/L Troponin I (0.000-0.034) ng/mL Serum Total Protein 7.2 (6.3-8.2) g/dL Albumin 4.4 (3.5-5.0) g/dL Amylase 41 (30-110) U/L Lipase 23 (23-300) U/L Urine Color (YELLOW) Urine Appearance (CLEAR) Urine pH (5-6) Ur Specific [place] (1.005-1.025) Urine Protein (Negative) Urine Ketones (NEGATIVE) Urine Blood (0-5) Sammy/ul Urine Nitrite (NEGATIVE) Urine Bilirubin (NEGATIVE) Urine Urobilinogen (0-1) mg/dL Ur Leukocyte Esterase (NEGATIVE) Urine WBC (Auto) (0-5) /HPF Urine RBC (Auto) (0-2) /HPF U Epithel Cells (Auto) (FEW) /HPF Urine Bacteria (Auto) (NEGATIVE) /HPF Urine Mucus (Auto) (NEGATIVE) /HPF Urine Culture Reflexed (NO) Urine Glucose (NEGATIVE) mg/dL SARS-CoV-2 (PCR) (NEGATIVE) Slides for Path Review - Radiology Impressions Radiology Exams & Impressions: Radiology Procedures Category Date Time Status ABDOMEN AND PELVIS W CONTRAST [CT] Routine Exams 03/17/21 15:44 Completed CHEST 1 VIEW (PORTABLE) Stat Exams 03/17/21 13:42 Completed NG TUBE PLACEMENT (RAD) Stat Exams 03/17/21 17:46 Taken - Other Procedures and Tests Respiratory Therapy 03/17/21 23:27 Oxygen Nasal Cannula 3 lpm 03/18/21 04:17 Respiratory Therapy Assessment DAILY Assessment/Plan (1) Small bowel obstruction Current Visit: Yes Status: Acute Assessment & Plan: continue conservative management at this time, appreciate surgery input. add teds and scds as well as IV protonix. will follow Code(s): K56.609 - UNSP INTESTNL OBST, UNSP TO PARTIAL VERSUS COMPLETE OBST
[2021-03-18] MEDS: PROTONIX 40 MG IV IV SCH (08:10)
--- NOTE | 2021-03-18 08:47 | XRAY ---
Indication: NG tube placement. Comparison: Chest exam taken earlier in the day. Portable chest demonstrates new NG tube traversing chest with tip in stomach. Lungs less inflated with new subsegmental atelectasis, left greater than right. Remaining heart and lungs unremarkable.
[2021-03-18] MEDS: PATIENT OWN MEDICATION IH SCH (10:44)
[2021-03-18] MEDS ORDERED: MEDICATION INTERVENTION PO SCH (15:30)
[2021-03-18] MEDS ORDERED: MEDICATION INTERVENTION MC SCH (15:30)
[2021-03-18] MEDS: SYNTHROID 50 MCG PO SCH (16:49)
[2021-03-18] MEDS: Lotrisone Cream TOP SCH (16:53)
[2021-03-18] MEDS ORDERED: IMIPRAMINE HCL PO SCH (22:00)
[2021-03-18] MEDS ORDERED: UREA TOP SCH (22:00)
[2021-03-18] MEDS: PATIENT OWN MEDICATION PO SCH (22:20)
[2021-03-19] MEDS: Ativan 2 MG/1 ML VIAL IV PRN (00:55)
[2021-03-19] MEDS: Lactated Ringers 1,000 ML IV SCH ×3 (03:46→21:12)
[2021-03-19 05:25] LABS: ALBUMIN 3.6 g/dL (3.5-5.0); ALKALINE PHOSPHATASE 42 U/L (38-126); ANION GAP 11.5 MEQ/L (5-15); BLOOD UREA NITROGEN 12 mg/dL (7-17); CHLORIDE 101 mmol/L (98-107); Calcium 8.6 mg/dL (8.4-10.2); Carbon Dioxide 30 mmol/L (22-30); EST GLOMERULAR FILTRATION RATE > 60.0 ML/MIN; Glucose 97 mg/dL (74-106); MAGNESIUM 1.9 mg/dL (1.6-2.3); Potassium 4.4 mmol/L (3.5-5.1); SGOT/AST 22 U/L (14-36); SGPT/ALT 12 U/L (0-35); SODIUM 138 mmol/L (137-145)
[2021-03-19 05:26] LABS: Absolute Neutrophil Ct (ANC) 7.65 (1.4-6.9); BASOPHIL % 0.1 % (0.0-0.4); Basophil (Absolute #) 0.01 (0-0.4); Eosinophil % 0.8 % (0.00-5.0); Eosinophil (Absolute #) 0.08 (0-0.5); Hematocrit 39.7 % (35-47); Hemoglobin 12.7 gm/dl (12.0-16.0); Lymphocyte (Absolute #) 1.21 (1.0-4.6); Lymphocytes % 11.4 % (24.0-44.0); Mean Cell Volume 109.7 fl (78-100); Mean Corpuscular Hemoglobin 35.1 pg (26-32); Mean Platelet Volume 10.7 fl (7.5-11.0); Monocyte (Absolute #) 1.66 (0.0-1.3); Monocytes % 15.6 % (0.0-12.0); Neutrophil % 72.1 % (36.0-66.0); Platelet Count 257 K/mm3 (150-450); Red Blood Count 3.62 M/mm3 (4.1-5.4); Red Cell Distribution Width 14.9 % (11.5-14.0); White Blood Count 10.6 K/mm3 (4.0-10.5)
[2021-03-19] MEDS: PROVENTIL 2.5 MG/3 ML NEB IH SCH ×4 (06:51→19:50)
[2021-03-19] MEDS: PATIENT OWN MEDICATION IH SCH (06:51)
[2021-03-19] MEDS: Hydromorphone 1 mg/ml Injection IV PRN ×2 (07:25→21:23)
--- NOTE | 2021-03-19 08:43 | XRAY ---
Indication: NG tube placement. Comparison: March 17, 2021. Portable chest again demonstrates NG tube traversing chest with tip in stomach. Lungs remain slightly underinflated with again bibasilar subsegmental atelectasis. Remaining heart and upper lungs unremarkable.
--- NOTE | 2021-03-19 08:55 | PCM.NOTE ---
Date and Time: 03/19/21 0851 Subjective Assessment: patient denies pain today, she is drowsy but answers questions. no bowel movement since admission according to patient. NG to LIS, cannister has been changed but has more than 2L documented as output Objective Exam General Appearance: no apparent distress, alert Skin Exam: normal color, warm, dry Respiratory Exam: normal breath sounds, lungs clear, No respiratory distress Cardiovascular Exam: regular rate/rhythm, normal heart sounds Gastrointestinal/Abdomen Exam: soft, No normal bowel sounds, No tenderness, No distention, No mass, No guarding Extremity Exam: normal inspection, normal range of motion OBJECTIVE DATA Vital Signs: Vital Signs - 24 hr Temp Pulse Resp BP Pulse Ox 03/19/21 07:36 98.4 F 93 H 16 123/58 92 L 03/19/21 06:52 90 20 92 L 03/19/21 03:36 97.8 F 93 H 19 129/64 92 L 03/19/21 00:00 98.3 F 89 19 148/69 94 L 03/18/21 19:56 98.5 F 82 18 124/65 97 03/18/21 19:00 84 22 97 03/18/21 15:52 98.4 F 89 18 113/62 96 03/18/21 14:29 82 20 95 03/18/21 12:00 98.3 F 85 20 123/63 93 L 03/18/21 10:46 78 24 98 Pain Assessment - Last Documented Pain Intensity 6 Pain Scale Used 0-10 Pain Scale Intake and Output: Intake & Output 03/16/21 03/17/21 03/18/21 03/19/21 11:59 11:59 11:59 11:59 Intake Total 1249 2697 Output Total 2355 1500 Balance -1106 1197 Weight 58.9 kg Lab Results: Lab Results-Last 24 Hours 03/19/21 03/19/21 Range/Units 05:11 05:11 WBC 10.6 H (4.0-10.5) K/mm3 RBC 3.62 L (4.1-5.4) M/mm3 Hgb 12.7 (12.0-16.0) gm/dl Hct 39.7 (35-47) % MCV 109.7 H (78-100) fl MCH 35.1 H (26-32) pg MCHC 32.0 (32-36) g/dl RDW 14.9 H (11.5-14.0) % Plt Count 257 (150-450) K/mm3 MPV 10.7 (7.5-11.0) fl Gran % 72.1 H (36.0-66.0) % Eos # (Auto) 0.08 (0-0.5) Absolute Lymphs (auto) 1.21 (1.0-4.6) Absolute Monos (auto) 1.66 H (0.0-1.3) Lymphocytes % 11.4 L (24.0-44.0) % Monocytes % 15.6 H (0.0-12.0) % Eosinophils % 0.8 (0.00-5.0) % Basophils % 0.1 (0.0-0.4) % Absolute Granulocytes 7.65 H (1.4-6.9) Basophils # 0.01 (0-0.4) Sodium 138 (137-145) mmol/L Potassium 4.4 (3.5-5.1) mmol/L Chloride 101 (98-107) mmol/L Carbon Dioxide 30 (22-30) mmol/L Anion Gap 11.5 (5-15) MEQ/L BUN 12 (7-17) mg/dL Creatinine 0.60 (0.52-1.04) mg/dL Estimated GFR > 60.0 ML/MIN Glucose 97 (74-106) mg/dL Calcium 8.6 (8.4-10.2) mg/dL Magnesium 1.9 (1.6-2.3) mg/dL Total Bilirubin 0.50 (0.2-1.3) mg/dL AST 22 (14-36) U/L ALT 12 (0-35) U/L Alkaline Phosphatase 42 (38-126) U/L Serum Total Protein 6.0 L (6.3-8.2) g/dL Albumin 3.6 (3.5-5.0) g/dL Slides for Path Review Radiology Exams: Radiology Procedures Category Date Time Status ABDOMEN AND PELVIS W CONTRAST [CT] Routine Exams 03/17/21 15:44 Completed CHEST 1 VIEW (PORTABLE) Stat Exams 03/17/21 13:42 Completed CHEST 1 VIEW (PORTABLE) Urgent Exams 03/19/21 08:02 Completed NG TUBE PLACEMENT (RAD) Stat Exams 03/17/21 17:46 Completed SMALL BOWEL SERIES Routine Exams 03/19/21 08:30 Ordered Multi-Disciplinary Progress Notes: Multi-Disciplinary Progress Notes 03/18/21 09:37 Case Management Note by Yelena Gibson ATTEMPTED TO S/W PATIENT REGARDING NEEDS AT DC AND CURRENT HOME SITUATION- PATIENT DOZING OFF FREQUENTLY AND UNABLE TO PARTICIPATE IN CONVERSATION- WILL TRY AGAIN LATER Initialized on 03/18/21 09:37 - END OF NOTE Assessment/Plan (1) Small bowel obstruction Current Visit: Yes Status: Acute Assessment & Plan: no bowel sounds on exam, significant NG output charted. has small bowel series ordered today by surgery, appreciate their input. continue IV protonix and teds/scds for dvt prophylaxis in case of needed surgical intervention. h/h with significant drop, has some blood tinge in NG this am, will monitor Code(s): K56.609 - UNSP INTESTNL OBST, UNSP TO PARTIAL VERSUS COMPLETE OBST
[2021-03-19] MEDS ORDERED: BETAMET DIPROP TOP SCH (10:00)
[2021-03-19] MEDS ORDERED: CLOTRIMAZOLE TOP SCH (10:00)
[2021-03-19] MEDS ORDERED: Hydromorphone 1 mg/ml Injection IV ONE (10:14)
[2021-03-19] MEDS: PROTONIX 40 MG IV IV SCH (10:20)
--- NOTE | 2021-03-19 10:39 | CONS ---
CONSULT DATE: 03/18/2021 REASON FOR CONSULT: Small bowel obstruction. HISTORY: The patient presents for small bowel obstruction. She was seen the day before. She was felt to have a significant chance of having this. She had a nasogastric tube in place. She was nontoxic. She was distended. Today, I think her distention is probably down just a little bit with the nasogastric tube. The nasogastric tube is fairly foul. Her distention appears to be localized predominantly on the right side, predominantly the right lower side. She is alert and oriented. She is nontoxic. Her urine output is satisfactory. She is NPO. Her NG is noted. IMPRESSION AND PLAN: I had marisel discussion with her. If she does not open up through the night there is a good chance that she will require surgical intervention Monday and this was discussed with her. She is not particularly anxious to have surgery but she is aware that if this does not improve that is going to be the nature of the course.
--- NOTE | 2021-03-19 12:56 | XRAY ---
Indication: Small bowel obstruction. Comparison: None Preliminary molder bench abdomen demonstrates mild air distended small bowel loops with paucity colonic bowel gas favoring small bowel obstruction. NG tube tip is in the stomach. No large free air. Solid organs unremarkable. Osseous structures intact with osteopenia, L3-L4 fusion hardware, and right total hip arthroplasty. Approximately 600 cc of diluted Gastrografin and water injected through indwelling NG tube. Multiple overhead radiographs and digital spot compression views obtained. Gastrografin is seen slowly moving through the fluid distended small bowel loops to the ascending colon within 3 hours. Majority of Gastrografin remains in the stomach, unchanged on first radiograph and the 3 hour radiograph. I suspect at least a partial distal small bowel obstruction. No focal transition point identified. There is no abnormal extravasation of contrast. Impression: Partial distal small bowel obstruction as detailed. Case was discussed with Dr. Sridhar Curtis at the time of this dictation. 0.4 minute fluoroscopy used.
[2021-03-19] MEDS ORDERED: Nicoderm CQ 21 MG TOP ONE (15:00)
[2021-03-19] MEDS: SYNTHROID 50 MCG PO SCH (17:43)
[2021-03-19] MEDS: Lotrisone Cream TOP SCH (17:45)
[2021-03-19] MEDS: PATIENT OWN MEDICATION PO SCH (21:12)
[2021-03-20] MEDS: Lactated Ringers 1,000 ML IV SCH ×3 (04:37→19:53)
[2021-03-20] MEDS ORDERED: MEFOXIN 2 GM PREMIX** 2 GM/50 ML ML IV SCH (05:00)
[2021-03-20 06:18] LABS: Absolute Neutrophil Ct (ANC) 9.32 (1.4-6.9); BASOPHIL % 0.1 % (0.0-0.4); Basophil (Absolute #) 0.01 (0-0.4); Eosinophil % 0.6 % (0.00-5.0); Eosinophil (Absolute #) 0.07 (0-0.5); Hematocrit 38.2 % (35-47); Hemoglobin 12.9 gm/dl (12.0-16.0); Lymphocyte (Absolute #) 1.09 (1.0-4.6); Lymphocytes % 9.4 % (24.0-44.0); Mean Cell Volume 107.3 fl (78-100); Mean Corpuscular Hemoglobin 36.2 pg (26-32); Mean Corpuscular Hgb Concent. 33.8 g/dl (32-36); Mean Platelet Volume 10.5 fl (7.5-11.0); Monocyte (Absolute #) 1.11 (0.0-1.3); Monocytes % 9.6 % (0.0-12.0); Neutrophil % 80.3 % (36.0-66.0); Platelet Count 255 K/mm3 (150-450); Red Blood Count 3.56 M/mm3 (4.1-5.4); Red Cell Distribution Width 14.3 % (11.5-14.0); White Blood Count 11.6 K/mm3 (4.0-10.5)
[2021-03-20 06:35] LABS: ALBUMIN 3.6 g/dL (3.5-5.0); ALKALINE PHOSPHATASE 45 U/L (38-126); ANION GAP 11.8 MEQ/L (5-15); BLOOD UREA NITROGEN 5 mg/dL (7-17); CHLORIDE 99 mmol/L (98-107); Calcium 8.5 mg/dL (8.4-10.2); Carbon Dioxide 27 mmol/L (22-30); Creatinine 1 0.43 mg/dL (0.52-1.04); EST GLOMERULAR FILTRATION RATE > 60.0 ML/MIN; Glucose 85 mg/dL (74-106); Potassium 3.9 mmol/L (3.5-5.1); SGOT/AST 30 U/L (14-36); SGPT/ALT 12 U/L (0-35); SODIUM 135 mmol/L (137-145); Total Protein 6.1 g/dL (6.3-8.2)
[2021-03-20] MEDS: PROVENTIL 2.5 MG/3 ML NEB IH SCH ×4 (07:24→21:16)
[2021-03-20] MEDS: PATIENT OWN MEDICATION IH SCH (07:29)
--- NOTE | 2021-03-20 07:36 | XRAY ---
Indication: Follow-up small bowel obstruction. Comparison: Small bowel follow-through exam one day earlier. KUB now demonstrates enteric contrast predominantly in the distal small bowel and colon without focal bowel dilatation or large free air. Contrast obscures solid organs. NG tube has been removed. Impression: KUB now appears nonobstructed with interval antegrade movement of enteric contrast.
--- NOTE | 2021-03-20 08:29 | PCM.NOTE ---
Date and Time: 03/20/21824 Subjective Assessment: has small Bowel movement last night. Possible surgical intervention todat - Review of Systems Constitutional: No Fever, No Chills Eyes: No Symptoms Ears, Nose, & Throat: No Symptoms Respiratory: No Cough, No Short Of Breath Cardiac: No Chest Pain, No Edema, No Syncope Abdominal/Gastrointestinal: Abdominal Pain, No Nausea, No Vomiting, No Diarrhea Genitourinary Symptoms: No Dysuria Musculoskeletal: No Back Pain, No Neck Pain Skin: No Rash Neurological: No Dizziness, No Focal Weakness, No Sensory Changes Psychological: No Symptoms Endocrine: No Symptoms Hematologic/Lymphatic: No Symptoms Immunological/Allergic: No Symptoms Objective Exam General Appearance: no apparent distress, alert Neurologic Exam: alert, oriented x 3, cooperative, normal mood/affect, nml cerebellar function, sensation nml, No motor deficits Skin Exam: normal color, warm, dry Eye Exam: PERRL, EOMI, eyes nml inspection Ears, Nose, Throat Exam: normal ENT inspection, pharynx normal, moist mucous membranes Neck Exam: normal inspection, non-tender, supple, full range of motion Respiratory Exam: normal breath sounds, lungs clear, No respiratory distress Cardiovascular Exam: regular rate/rhythm, normal heart sounds Gastrointestinal/Abdomen Exam: soft, distention, No normal bowel sounds, No tenderness, No mass, No guarding Extremity Exam: normal inspection, normal range of motion Back Exam: normal inspection, normal range of motion, No CVA tenderness, No vertebral tenderness Pelvic Exam: deferred Rectal Exam: deferred OBJECTIVE DATA Vital Signs: Vital Signs - 24 hr Temp Pulse Resp BP Pulse Ox 03/20/21 07:29 75 16 99 03/20/21 07:15 98.2 F 73 20 131/69 96 03/20/21 04:00 98.3 F 90 20 153/67 97 03/19/21 23:59 97.9 F 97 H 20 141/76 94 L 03/19/21 19:54 98.4 F 72 20 141/69 94 L 03/19/21 19:50 72 14 96 03/19/21 19:34 146/67 03/19/21 16:00 98.6 F 87 18 114/63 92 L 03/19/21 14:37 87 18 95 03/19/21 11:52 98.3 F 88 16 132/79 94 L 03/19/21 10:46 83 20 95 Pain Assessment - Last Documented Pain Intensity 5 Pain Scale Used 0-10 Pain Scale,FLACC Intake and Output: Intake & Output 03/17/21 03/18/21 03/19/21 03/20/21 11:59 11:59 11:59 11:59 Intake Total 1249 2697 2660 Output Total 2355 1500 1475 Balance -1106 1197 1185 Weight 58.9 kg 58.9 kg Lab Results: Lab Results-Last 24 Hours 03/20/21 03/20/21 Range/Units 05:30 05:30 WBC 11.6 H (4.0-10.5) K/mm3 RBC 3.56 L (4.1-5.4) M/mm3 Hgb 12.9 (12.0-16.0) gm/dl Hct 38.2 (35-47) % MCV 107.3 H (78-100) fl MCH 36.2 H (26-32) pg MCHC 33.8 (32-36) g/dl RDW 14.3 H (11.5-14.0) % Plt Count 255 (150-450) K/mm3 MPV 10.5 (7.5-11.0) fl Gran % 80.3 H (36.0-66.0) % Eos # (Auto) 0.07 (0-0.5) Absolute Lymphs (auto) 1.09 (1.0-4.6) Absolute Monos (auto) 1.11 (0.0-1.3) Lymphocytes % 9.4 L (24.0-44.0) % Monocytes % 9.6 (0.0-12.0) % Eosinophils % 0.6 (0.00-5.0) % Basophils % 0.1 (0.0-0.4) % Absolute Granulocytes 9.32 H (1.4-6.9) Basophils # 0.01 (0-0.4) Sodium 135 L (137-145) mmol/L Potassium 3.9 (3.5-5.1) mmol/L Chloride 99 (98-107) mmol/L Carbon Dioxide 27 (22-30) mmol/L Anion Gap 11.8 (5-15) MEQ/L BUN 5 L (7-17) mg/dL Creatinine 0.43 L (0.52-1.04) mg/dL Estimated GFR > 60.0 ML/MIN Glucose 85 (74-106) mg/dL Calcium 8.5 (8.4-10.2) mg/dL Total Bilirubin 0.50 (0.2-1.3) mg/dL AST 30 (14-36) U/L ALT 12 (0-35) U/L Alkaline Phosphatase 45 (38-126) U/L Serum Total Protein 6.1 L (6.3-8.2) g/dL Albumin 3.6 (3.5-5.0) g/dL Radiology Exams: Radiology Procedures Category Date Time Status CHEST 1 VIEW (PORTABLE) Urgent Exams 03/19/21 08:02 Completed KUB Routine Exams 03/20/21 06:00 Completed SMALL BOWEL SERIES Routine Exams 03/19/21 08:30 Completed Multi-Disciplinary Progress Notes: Multi-Disciplinary Progress Notes 03/19/21 09:45 Case Management Note by Yelena Gibson ATTEMPTED TO TALK TO PATIENT AGAIN TODAY ABOUT ANY DC NEEDS- PATIENT STILL DISORIENTED. RE-ORIENTED PATIENT BUT WILL NEED TO HOLD OFF ON CASE MANAGEMENT ASSESS UNTIL PATIENT IS ALERT AND ORIENTED Initialized on 03/19/21 09:45 - END OF NOTE Assessment/Plan (1) Small bowel obstruction Current Visit: Yes Status: Acute Assessment & Plan: Last Vital Signs Temp 98.2 F 03/20/21 07:15 Pulse 75 03/20/21 07:29 Resp 16 03/20/21 07:29 BP 131/69 03/20/21 07:15 Pulse Ox 99 03/20/21 07:29 Allergies DISSOLVABLE SUTURES Allergy (Uncoded 03/17/21 18:42) Active Medications Albuterol Sulfate (Proventil 2.5 Mg/3 Ml Neb) 2.5 mg IH QIDRT [facility] Stop: 04/17/21 06:59 Last Admin: 03/20/21 07:24 Dose: 2.5 mg Documented by: Clotrimazole (Lotrisone Cream) 0 gm TOP QAM [facility] Stop: 04/17/21 15:59 Last Admin: 03/19/21 17:45 Dose: 1 gm Documented by: Hydromorphone HCl (Hydromorphone 1 Mg/Ml Injection) 0.5 mg IV Q4H PRN PRN PRN Reason: PAIN Stop: 03/22/21 16:46 Last Admin: 03/19/21 21:23 Dose: 0.5 mg Documented by: Lactated Ringer's (Lactated Ringers) 1,000 mls @ 125 mls/hr IV .Q8H [facility]ANCY Stop: 04/16/21 18:59 Last Admin: 03/20/21 04:37 Dose: 125 mls/hr Documented by: Cefoxitin Sodium (Mefoxin 2 Gm Premix) 2 gm in 50 mls @ 100 mls/hr IV ONCALLT OOR [facility] Stop: 03/23/21 04:59 Levothyroxine Sodium (Synthroid 50 Mcg) 50 mcg PO DAILY [facility]ANCY Stop: 04/17/21 15:59 Last Admin: 03/19/21 17:43 Dose: Not Given Documented by: Miscellaneous Information (Medication Intervention) 1 each MC .RN TO CHECK ON NANCY Stop: 04/17/21 15:29 Ondansetron HCl (Zofran 4 Mg/2 Ml Vial) 4 mg IV Q4H PRN PRN PRN Reason: NAUSEA/VOMITING Stop: 04/16/21 18:44 Last Admin: 03/17/21 22:10 Dose: 4 mg Documented by: Pantoprazole Sodium (Protonix 40 Mg Iv) 40 mg IV Q24H10 [facility] Stop: 04/17/21 09:59 Last Admin: 03/19/21 10:20 Dose: 40 mg Documented by: Marco Murray 100/25 1 each IH 0700 [facility] Stop: 04/17/21 06:59 Last Admin: 03/20/21 07:29 Dose: 1 each Documented by: Imipramine 50mg (Tablet) 3 each PO HS NANCY Stop: 04/17/21 21:59 Last Admin: 03/19/21 21:12 Dose: 3 each Documented by: Phenol (Chloraseptic [place] 180 Ml) 1 ml PO Q3H PRN PRN PRN Reason: SORE THROAT/IRRATATION Stop: 04/16/21 18:44 Last Admin: 03/19/21 21:17 Dose: 1 ml Documented by: Intake & Output 03/19/21 03/20/21 11:59 11:59 Intake Total 0413 4100 Output Total 6388 1475 Balance 1197 1185 Weight 58.9 kg Lab Tests 03/20/21 03/20/21 05:30 05:30 WBC 11.6 H RBC 3.56 L Hgb 12.9 Hct 38.2 MCV 107.3 H MCH 36.2 H MCHC 33.8 RDW 14.3 H Plt Count 255 MPV 10.5 Gran % 80.3 H Eos # (Auto) 0.07 Absolute Lymphs (auto) 1.09 Absolute Monos (auto) 1.11 Lymphocytes % 9.4 L Monocytes % 9.6 Eosinophils % 0.6 Basophils % 0.1 Absolute Granulocytes 9.32 H Basophils # 0.01 Sodium 135 L Potassium 3.9 Chloride 99 Carbon Dioxide 27 Anion Gap 11.8 BUN 5 L Creatinine 0.43 L Estimated GFR > 60.0 Glucose 85 Calcium 8.5 Total Bilirubin 0.50 AST 30 ALT 12 Alkaline Phosphatase 45 Serum Total Protein 6.1 L Albumin 3.6 Code(s): K56.609 - UNSP INTESTNL OBST, UNSP TO PARTIAL VERSUS COMPLETE OBST
[2021-03-20] MEDS: PROTONIX 40 MG IV IV SCH (09:17)
[2021-03-20] MEDS: SYNTHROID 50 MCG PO SCH (09:17)
[2021-03-20] MEDS: Lotrisone Cream TOP SCH (09:25)
[2021-03-20] MEDS: TYLENOL 325 MG PO PRN (12:22)
[2021-03-20] MEDS: PATIENT OWN MEDICATION PO SCH (21:11)
[2021-03-21] MEDS: TYLENOL 325 MG PO PRN (04:14)
[2021-03-21] MEDS: Hydromorphone 1 mg/ml Injection IV PRN (05:27)
[2021-03-21] MEDS: PROVENTIL 2.5 MG/3 ML NEB IH SCH ×4 (07:18→18:37)
[2021-03-21] MEDS: PATIENT OWN MEDICATION IH SCH (07:22)
[2021-03-21] MEDS: SYNTHROID 50 MCG PO SCH (09:10)
[2021-03-21] MEDS: PROTONIX 40 MG IV IV SCH (09:10)
[2021-03-21] MEDS: Lotrisone Cream TOP SCH (09:11)
[2021-03-21] MEDS ORDERED: ENOXAPARIN SODIUM SQ ONE (10:20)
[2021-03-21] MEDS: PATIENT OWN MEDICATION PO SCH (21:49)
[2021-03-22] MEDS: Lactated Ringers 1,000 ML IV SCH (00:09)
[2021-03-22] MEDS: PATIENT OWN MEDICATION IH SCH (06:44)
[2021-03-22] MEDS: PROVENTIL 2.5 MG/3 ML NEB IH SCH (06:44)
[2021-03-22] MEDS: SYNTHROID 50 MCG PO SCH (08:07)
[2021-03-22] MEDS: PROTONIX 40 MG IV IV SCH (08:07)
[2021-03-22] MEDS: Lotrisone Cream TOP SCH (08:09)
--- NOTE | 2021-03-22 08:28 | PCM.NOTE ---
Date and Time: 03/22/21827 OBJECTIVE DATA Vital Signs: Vital Signs - 24 hr Temp Pulse Resp BP Pulse Ox 03/22/21 06:49 84 16 97 03/22/21 04:00 98.9 F 79 22 135/65 93 L 03/21/21 23:00 98.9 F 79 20 128/60 95 03/21/21 20:00 98.7 F 96 H 22 141/78 95 03/21/21 18:37 89 14 93 L 03/21/21 16:00 98.0 F 86 18 120/59 94 L 03/21/21 12:52 91 H 16 98 03/21/21 11:45 97.6 F 77 18 145/67 96 Pain Assessment - Last Documented Pain Intensity 0 Pain Scale Used 0-10 Pain Scale Intake and Output: Intake & Output 03/19/21 03/20/21 03/21/21 03/22/21 11:59 11:59 11:59 11:59 Intake Total 2697 3020 4253 1350 Output Total 1500 1475 4200 Balance 1197 1545 53 1350 Weight 58.9 kg Multi-Disciplinary Progress Notes: Multi-Disciplinary Progress Notes 03/22/21 06:27 Respiratory Note by Mone Miller PT'S SPO2 WHILE SLEEPING WAS 89%, AND I HAD NURSING LEAVE THE PT ON ROOM AIR I NSTEAD OF PLACING HER ON OXYGEN LONG HER SPO2 WAS 88% OR ABOVE. Initialized on 03/22/21 06:27 - END OF NOTE Assessment/Plan (1) Small bowel obstruction Current Visit: Yes Status: Acute Code(s): K56.609 - UNSP INTESTNL OBST, UNSP TO PARTIAL VERSUS COMPLETE OBST
--- NOTE | 2021-03-22 08:38 | PCM.DS ---
Discharge Summary Date of Admission: 03/17/21 17:55 Admitting Physician: NATI COOK Consults: Consults on Case 03/17/21 16:52 Consult Surgery ROUTINE Primary Care Provider: SARAH MATT Allergies Allergies DISSOLVABLE SUTURES Allergy (Uncoded 03/17/21 18:42) Hospital Summary - Hospital Course Hospital Course: patient was admitted with abdominal pain and nausea/vomiting unable to tolerate po intake, ct showed SBO. NG was inserted and surgery consulted, she was treated conservatively and obstruction has resolved. she is tolerating solid food and has had a bowel movement. she feels well and has no complaints currently. - Vitals & Intake/Output Vital Signs: Vital Signs Temperature 98.9 F 03/22/21 04:00 Pulse Rate 84 03/22/21 06:49 Respiratory Rate 16 03/22/21 06:49 Blood Pressure 135/65 03/22/21 04:00 O2 Sat by Pulse Oximetry 97 03/22/21 06:49 Intake & Output: Intake & Output 03/19/21 03/20/21 03/21/21 03/22/21 11:59 11:59 11:59 11:59 Intake Total 2697 3020 4253 1350 Output Total 1500 1475 4200 Balance 1197 1545 53 1350 Weight 58.9 kg - Lab Result Diagrams: 03/20/21 05:30 03/20/21 05:30 - Procedures and Test Procedures and Tests throughout Hospitalization: Therapy Orders & Screens 03/17/21 18:44 Smoking Cessation Education ONCE Comment: Diagnosis: SBO Smoking Status: Current every day smoker How long have you smoked: 40 Have you smoked in the past 12 months: Yes Approximately how many cigarettes per day: 1 1/2 PACKS Do you dip or chew tobacco: No 03/17/21 23:27 Oxygen Nasal Cannula 3 lpm Comment: Diagnosis: SBO 03/18/21 04:17 Respiratory Therapy Assessment DAILY Comment: Diagnosis: SBO 03/19/21 07:00 Respiratory MDI DAILY Comment: JAMES DAILY-HOME MED Diagnosis: SBO 03/20/21 20:56 RT Miscellaneous Order ROUTINE Comment: PATIENT DOES NOT WEAR OXYGEN AT HOME Physician Instructions: Reason For Exam: WEAN OXYGEN TOLERATED Diagnosis: SBO Discharge Exam General Appearance: no apparent distress, alert Neurologic Exam: alert, oriented x 3, cooperative Respiratory Exam: normal breath sounds, lungs clear, No respiratory distress Cardiovascular Exam: regular rate/rhythm, normal heart sounds Gastrointestinal/Abdomen Exam: soft, normal bowel sounds, No tenderness, No distention, No mass, No guarding, No rebound Extremity Exam: normal inspection, normal range of motion Skin Exam: normal color, warm, dry Final Diagnosis/Problem List - Final Discharge Diagnosis/Problem (1) Small bowel obstruction Current Visit: Yes Status: Acute Assessment & Plan: resolved with conservative treatment, tolerating po intake and has no complaints. Code(s): K56.609 - UNSP INTESTNL OBST, UNSP TO PARTIAL VERSUS COMPLETE OBST - Discharge Disposition: Home, Self-Care Condition: Good Prescriptions: Continue Celecoxib [Celebrex] 200 mg PO DAILY Simvastatin 40 mg [Zocor 40 mg] 40 mg PO HS Calcium Carbonate/Vitamin D3 [Calcium 600 + Vit D Tablet] 1 each PO HS Acetaminophen 500 mg [Tylenol Extra Strength 500 mg] 2 tab PO BID Multivit with Calcium,Iron,Min [Women's Daily Multivitamin] 1 each PO DAILY Levothyroxine Sodium 50 Mcg [Synthroid 50 Mcg] 50 mcg PO DAILY Imipramine HCl 150 mg PO QHS Methotrexate Sodium 2.5 mg [Trexall 2.5 mg] 15 mg PO WEEKLY Oxybutynin Chloride 5 mg PO BID Losartan Potassium [Cozaar] 25 mg PO DAILY Aspirin EC 81 mg [Ecotrin 81 mg] 81 mg PO DAILY Fluticasone/Vilanterol [Breo Ellipta 100-25 Mcg INH] 1 inh IH DAILY Omeprazole 40 mg PO DAILY Urea 1 applic TOP HS Clotrimazole/Betamet Diprop [Lotrisone 45 Gm Cream] 1 applic TOP DAILY Cetirizine HCl [All Day Allergy Relief] 10 mg PO DAILY Metaxalone 800 mg PO BID Guaifen/Dextromethorphan/PE [Mucinex Fast-Max Congest-Cough] 1 each PO DAILY Folic Acid 1 mg [Folate 1 mg] 1 mg PO DAILY Psyllium Husk [Psyllium Fiber] 0.52 gm PO HS Albuterol 2.5 mg/3 ml Neb [Proventil 2.5 mg/3 ml Neb] 1 neb IH Q4-6HPRN PRN PRN Reason: SOB/ wheezing Melatonin/Chamomile Flower [Sm Melatonin 3 mg Tablet] 2 tab PO HS Follow up with: SARAH MATT [Primary Care Provider] - 1 Week
[2021-03-22 08:46] VITALS: BP 152/72; PULSE 91; O2SAT 93
== END 2021-03-22 09:47 | disposition home or self-care (01) | DRG 390 ==
LOC: ED 13:24 → MED SURG 17:55
PROVIDERS: ADMIT Family Medicine; ATTEND Family Medicine
DX: K56.609 Unspecified intestinal obstruction, unspecified as to partial versus complete obstruction (principal); R10.84 Generalized abdominal pain; Z79.899 Other long term (current) drug therapy; J44.9 Chronic obstructive pulmonary disease, unspecified; E03.9 Hypothyroidism, unspecified; Z20.828 Contact with and (suspected) exposure to other viral communicable diseases
CPT/HCPCS: 36000; 36415; 43752; 71045; 74018; 74177; 74250; 80053; 81001; 82150; 83605; 83690; 83735; 84484; 85025; 85027; 93005; 94640; 94760; 94762; 96360; 96374; 96375; 99284; U0003; J1170; J1650; J2060; J2405; J7609; A9270-GY

== ENCOUNTER 2022-01-12 00:54 | Observation (INO) | payer MEDICARE, OTHER ==
[2022-01-12 01:50] LABS: Absolute Neutrophil Ct (ANC) 10.38 x10^3/uL (1.4-6.9); Basophil (Absolute #) 0.04 x10^3/uL (0-0.4); Eosinophil % 1.4 % (0.00-5.0); Eosinophil (Absolute #) 0.19 x10^3/uL (0-0.5); Hematocrit 37.7 % (35-47); Hemoglobin 12.7 g/dL (12.0-16.0); Lymphocyte (Absolute #) 1.59 x10^3/uL (1.0-4.6); Mean Cell Volume 106.2 fL (78-100); Mean Corpuscular Hemoglobin 35.8 pg (26-32); Mean Corpuscular Hgb Concent. 33.7 g/dL (32-36); Mean Platelet Volume 9.5 fL (7.5-11.0); Monocyte (Absolute #) 0.92 x10^3/uL (0.0-1.3); Neutrophil % 78.5 % (36.0-66.0); Platelet Count 353 x10^3/uL (150-450); Red Blood Count 3.55 x10^6/uL (4.1-5.4); Red Cell Distribution Width 14.6 % (11.5-14.0); White Blood Count 13.2 x10^3/uL (4.0-10.5)
[2022-01-12 02:17] LABS: ALKALINE PHOSPHATASE 77 U/L (38-126); ANION GAP 12.7 MEQ/L (5-15); BLOOD UREA NITROGEN 20 mg/dL (7-17); CHLORIDE 105 mmol/L (98-107); Calcium 9.3 mg/dL (8.4-10.2); Carbon Dioxide 22 mmol/L (22-30); Creatinine 1 0.72 mg/dL (0.52-1.04); EST GLOMERULAR FILTRATION RATE > 60.0 ML/MIN; Glucose 134 mg/dL (74-106); Potassium 4.2 mmol/L (3.5-5.1); SGOT/AST 31 U/L (14-36); SGPT/ALT 20 U/L (0-35); SODIUM 136 mmol/L (137-145); Total Protein 6.7 g/dL (6.3-8.2)
[2022-01-12 02:28] LABS: INFLUENZA A NEGATIVE (NEGATIVE); INFLUENZA B NEGATIVE (NEGATIVE); RESPIRATORY SYNCTIAL VIRUS NEGATIVE (Negative); SARS-CoV-2 Xpert Express NEGATIVE (NEGATIVE)
--- NOTE | 2022-01-12 03:04 | ERPHSYRPT ---
- History of Present Illness Time Seen by Provider: 01/12/22 01:00 Source: patient Exam Limitations: no limitations Patient Subjective Stated Complaint: pt states she was in her attached garage smoking a cigarette and she lost her footing and fell. does not know what she h it her head on , but states that she has pain in her head 6/10, states she did not lose consciousnoss at the time of the fall, however EMT states that upon arrival she seemed confused. Triage Nursing Assessment: pt has a wound on back of head. states pain is 6/10 Physician History: Patient is a 76-year-old female presents to emergency department via EMS for evaluation of a fall. Patient presented with a cervical collar not boarded. Patient states she was at home and her garage when she fell. Patient does not recall exactly what occurred prior to her fall nor after her fall. Patient states that she awoke on the floor and was able to call 911. Upon EMS arrival patient appeared confused. Patient lives alone. Patient has a laceration to the back of her head. Patient does not recall experiencing any chest pain or shortness of breath prior to her fall. No numbness tingling or weakness. Symptoms are mild to moderate in intensity. No specific worsening improving factors. Patient voices no other complaints or concerns at this time. Timing/Duration: today Severity: moderate Modifying Factors: Improves With: nothing Associated Symptoms: denies symptoms Allergies/Adverse Reactions: DISSOLVABLE SUTURES Allergy (Severe, Uncoded 01/12/22 01:13) Home Medications: Celecoxib [Celebrex] 200 mg PO DAILY 10/15/13 [History] Levothyroxine Sodium 50 Mcg [Synthroid 50 Mcg] 50 mcg PO DAILY 10/15/13 [History] Simvastatin 40 mg [Zocor 40 mg] 40 mg PO HS 10/15/13 [History] Imipramine HCl 50 mg PO QHS 12/11/17 [History] Methotrexate Sodium 2.5 mg [Trexall 2.5 mg] 15 mg PO WEEKLY 12/11/17 [History] Losartan Potassium [Cozaar] 25 mg PO DAILY 03/17/21 [History] Omeprazole 40 mg PO DAILY 03/17/21 [History] Oxybutynin Chloride 5 mg PO BID 03/17/21 [History] Albuterol 2.5 mg/3 ml Neb [Proventil 2.5 mg/3 ml Neb] 1 neb IH Q4-6HPRN PRN 03/18/21 [History] Fluticasone/Vilanterol [Breo Ellipta 100-25 Mcg INH] 1 each IH DAILY 01/12/22 [History] Folic Acid 1 mg [Folate 1 mg] 1 mg PO DAILY 01/12/22 [History] Hx Tetanus, Diphtheria Vaccination/Date Given: No Hx Influenza Vaccination/Date Given: Yes Hx Pneumococcal Vaccination/Date Given: Yes Immunizations Up to Date: Yes Travel Risk - International Travel Have you traveled outside of the country in past 3 weeks: No - Coronavirus Screening Are you exhibiting any of the following symptoms?: No Close contact with a COVID-19 positive Pt in past 14-21 Days: No - Vaccine Status Have you recieved a Covid-19 vaccination: Yes 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: [email or web address] - Vaccination Dates Date of 2cond Vaccination (if applicable): unknown - Review of Systems Constitutional: No Symptoms, No Fever, No Chills Eyes: No Symptoms Ears, Nose, & Throat: No Symptoms Respiratory: No Symptoms, No Cough, No Dyspnea Cardiac: No Symptoms, No Chest Pain, No Edema, No Syncope Abdominal/Gastrointestinal: No Symptoms, No Abdominal Pain, No Nausea, No Vomiting, No Diarrhea Genitourinary Symptoms: No Symptoms, No Dysuria Musculoskeletal: No Symptoms, No Back Pain, No Neck Pain Skin: No Symptoms, No Rash Neurological: No Symptoms, No Dizziness, No Focal Weakness, No Sensory Changes Psychological: No Symptoms Endocrine: No Symptoms Hematologic/Lymphatic: No Symptoms Immunological/Allergic: No Symptoms All Other Systems: Reviewed and Negative - Past Medical History Pertinent Past Medical History: Yes Neurological History: No Pertinent History ENT History: No Pertinent History Cardiac History: No Pertinent History Respiratory History: COPD Endocrine Medical History: Hypothyroidism Musculoskeletal History: Arthritis GI Medical History: GERD History: No Pertinent History Psycho-Social History: Anxiety Female Reproductive Disorders: Other - Past Surgical History Past Surgical History: Yes Neuro Surgical History: No Pertinent History Cardiac: No Pertinent History Respiratory: No Pertinent History Gastrointestinal: Appendectomy Genitourinary: No Pertinent History Musculoskeletal: Orthopedic Surgery Female Surgical History: Hysterectomy, Tubal Ligation Other Surgical History: back surgery x two{ stenosis},left foot nerve release,left hand trigger finger release,A&P repair-colporrhaphy,childbirth x two - Social History Smoking Status: Current every day smoker How long have you smoked: 40 Exposure to second hand smoke: Yes Drug Use: none Patient Lives Alone: Yes - Nursing Vital Signs Nursing Vital Signs: Initial Vital Signs Temperature 98.6 F 01/12/22 00:55 Pulse Rate 84 01/12/22 00:55 Respiratory Rate 18 01/12/22 00:55 Blood Pressure 93/51 01/12/22 00:55 O2 Sat by Pulse Oximetry 93 L 01/12/22 00:55 Pain Scale Pain Intensity 3 - Physical Exam General Appearance: no apparent distress, alert, other (Posterior scalp laceration.) Eye Exam: PERRL/EOMI, eyes nml inspection Ears, Nose, Throat Exam: normal ENT inspection, TMs normal, pharynx normal, moist mucous membranes Neck Exam: normal inspection, non-tender, supple, full range of motion Respiratory Exam: normal breath sounds, lungs clear, No respiratory distress Cardiovascular Exam: regular rate/rhythm, normal heart sounds, normal peripheral pulses Gastrointestinal/Abdomen Exam: soft, normal bowel sounds, No tenderness, No mass Back Exam: normal inspection, normal range of motion, No CVA tenderness, No vertebral tenderness Extremity Exam: normal inspection, normal range of motion, pelvis stable Neurologic Exam: alert, oriented x 3, cooperative, normal mood/affect, nml c erebellar function, nml station & gait, sensation nml, No motor deficits Skin Exam: normal color, warm, dry, No rash Lymphatic Exam: No adenopathy SpO2 Interpretation: normal SpO2: 93 O2 Delivery: Room Air Procedures - Laceration/Wound Repair Posterior Occipital Time of Procedure: 03:29 Wound Length (cm): 3 Wound's Depth, Shape: superficial Wound Explored: clean Irrigated: Yes Wound Debrided: No debridement indicated Wound Repaired With: Vonda Number of Sutures: 3 Layer Closure?: No Sterile Dressing Applied?: Yes Splint Applied?: No Type of Splint Applied: Morphine administered for pain control - Course Nursing assessment & vital signs reviewed: Yes EKG Interpreted by Me: RATE (80), Sinus Rhythm, NORMAL AXIS, NORMAL INTERVALS - Radiology Exams Hip X-ray Interpretation: Interpreted by me (No fracture or dislocation. No soft tissue abnormalities. Degenerative arthritis left hip) - CT Exams Cervical Spine CT Interpretation: Tele-radiologist Report (No acute fracture of the cervical spine. Chronic bony findings observed. See radiology report for details) Head CT Interpretation: Tele-radiologist Report Ordered Tests: Active Orders 24 hr Category Date Time Status Consistent Carbohydrate Diet 1800 Calorie Diet 01/12/22 Breakfast Completed TROPONIN Q3H Lab 01/12/22 07:30 Completed TROPONIN Q3H Lab 01/12/22 10:00 Completed TROPONIN Q3H Lab 01/12/22 12:59 Completed Medication Summary Discontinued Medications Generic Name Dose Route Start Last Admin Trade Name Freq PRN Reason Stop Dose Admin Acetaminophen 650 mg 01/12/22 04:37 01/12/22 08:16 Acetaminophen 325 Mg Tablet PO 02/11/22 04:36 650 mg Q4H PRN PRN Administration PAIN AND/OR FEVER Al Hydrox/Mg Hydrox/Simethicone 30 ml 01/12/22 04:37 Mag Hydrox/Al Hydrox/Simeth 30 Ml Udcup PO 02/11/22 04:36 Q4H PRN PRN INDIGESTION Albuterol Sulfate 2.5 mg 01/12/22 11:00 01/12/22 10:47 Albuterol Sulfate 2.5 Mg/3 Ml Neb IH 02/11/22 10:59 2.5 mg QIDRT NANCY Administration Magnesium Hydroxide 30 - 60 ml 01/12/22 04:37 Magnesium Hydroxide 30 Ml Udcup PO 02/11/22 04:36 QDP PRN CONSTIPATION Morphine Sulfate 2 mg 01/12/22 03:21 01/12/22 03:23 Morphine Sulfate 2 Mg/Ml Inj IV 01/12/22 03:22 2 mg STAT ONE Administration Morphine Sulfate Confirm 01/12/22 03:23 Morphine Sulfate 2 Mg/Ml Inj Administered 01/12/22 03:24 Dose 2 mg .ROUTE .STK-MED ONE Ondansetron HCl 4 mg 01/12/22 04:37 Ondansetron Hcl 4 Mg/2 Ml Vial IV 02/11/22 04:36 Q4H PRN PRN NAUSEA/VOMITING Senna/Docusate Sodium 2 udtab 01/12/22 04:37 Senna/Docusate Sodium 1 Udtab Tablet PO 02/11/22 04:36 BID PRN PRN CONSTIPATION Lab/Rad Data: Laboratory Result Diagrams 01/12/22 01:48 01/12/22 01:48 Laboratory Results 01/12/22 01/12/22 01/12/22 Range/Units 04:23 01:48 01:48 WBC (4.0-10.5) x10^3/uL RBC (4.1-5.4) x10^6/uL Hgb (12.0-16.0) g/dL Hct (35-47) % MCV (78-100) fL MCH (26-32) pg MCHC (32-36) g/dL RDW (11.5-14.0) % Plt Count (150-450) x10^3/uL MPV (7.5-11.0) fL Gran % (36.0-66.0) % Immature Gran % (Auto) (0.00-0.4) % Nucleat RBC Rel Count (0.00-0.1) % Eos # (Auto) (0-0.5) x10^3/uL Immature Gran # (Auto) (0.00-0.03) x10^3u/L Absolute Lymphs (auto) (1.0-4.6) x10^3/uL Absolute Monos (auto) (0.0-1.3) x10^3/uL Absolute Nucleated RBC (0.00-0.01) x10^3u/L Lymphocytes % (24.0-44.0) % Monocytes % (0.0-12.0) % Eosinophils % (0.00-5.0) % Basophils % (0.0-0.4) % Absolute Granulocytes (1.4-6.9) x10^3/uL Basophils # (0-0.4) x10^3/uL Sodium 136 L (137-145) mmol/L Potassium 4.2 (3.5-5.1) mmol/L Chloride 105 (98-107) mmol/L Carbon Dioxide 22 (22-30) mmol/L Anion Gap 12.7 (5-15) MEQ/L BUN 20 H (7-17) mg/dL Creatinine 0.72 (0.52-1.04) mg/dL Estimated GFR > 60.0 ML/MIN Glucose 134 H (74-106) mg/dL Calcium 9.3 (8.4-10.2) mg/dL Total Bilirubin 0.30 (0.2-1.3) mg/dL AST 31 (14-36) U/L ALT 20 (0-35) U/L Alkaline Phosphatase 77 (38-126) U/L Troponin I < 0.012 (0.000-0.034) ng/mL Serum Total Protein 6.7 (6.3-8.2) g/dL Albumin 4.0 (3.5-5.0) g/dL Urinalys Dipstick Clnc MAIN LAB Urine Color YELLOW (YELLOW) Urine Appearance CLEAR (CLEAR) Urine pH 6.0 (5-6) Ur Specific Jackson 1.020 (1.005-1.025) POC Urine Protein Conf NEGATIVE (Negative) Urine Ketones NEGATIVE (NEGATIVE) Urine Nitrite NEGATIVE (NEGATIVE) Urine Bilirubin NEGATIVE (NEGATIVE) Urine Urobilinogen 0.2 (0-1) mg/dL Urine Leukocytes NEGATIVE (NEGATIVE) Urine WBC (Auto) 3-5 (0-5) /HPF Urine RBC (Auto) NONE (0-2) /HPF U Hyaline Cast (Auto) 0-2 (0-2) /LPF U Epithel Cells (Auto) RARE (FEW) /HPF Urine Bacteria (Auto) RARE (NEGATIVE) /HPF Urine RBC NEGATIVE (0-5) Sammy/ul Urine Mucus (Auto) SLIGHT (NEGATIVE) /HPF Ur Culture Indicated? NO Urine Glucose NEGATIVE (NEGATIVE) mg/dL Influenza Type A Ag (NEGATIVE) Influenza Type B Ag (NEGATIVE) RSV (PCR) (Negative) SARS-CoV-2 (PCR) (NEGATIVE) 01/12/22 01/12/22 Range/Units 01:48 01:47 WBC 13.2 H (4.0-10.5) x10^3/uL RBC 3.55 L (4.1-5.4) x10^6/uL Hgb 12.7 (12.0-16.0) g/dL Hct 37.7 (35-47) % MCV 106.2 H (78-100) fL MCH 35.8 H (26-32) pg MCHC 33.7 (32-36) g/dL RDW 14.6 H (11.5-14.0) % Plt Count 353 (150-450) x10^3/uL MPV 9.5 (7.5-11.0) fL Gran % 78.5 H (36.0-66.0) % Immature Gran % (Auto) 0.8 H (0.00-0.4) % Nucleat RBC Rel Count 0.0 (0.00-0.1) % Eos # (Auto) 0.19 (0-0.5) x10^3/uL Immature Gran # (Auto) 0.11 H (0.00-0.03) x10^3u/L Absolute Lymphs (auto) 1.59 (1.0-4.6) x10^3/uL Absolute Monos (auto) 0.92 (0.0-1.3) x10^3/uL Absolute Nucleated RBC 0.00 (0.00-0.01) x10^3u/L Lymphocytes % 12.0 L (24.0-44.0) % Monocytes % 7.0 (0.0-12.0) % Eosinophils % 1.4 (0.00-5.0) % Basophils % 0.3 (0.0-0.4) % Absolute Granulocytes 10.38 H (1.4-6.9) x10^3/uL Basophils # 0.04 (0-0.4) x10^3/uL Sodium (137-145) mmol/L Potassium (3.5-5.1) mmol/L Chloride (98-107) mmol/L Carbon Dioxide (22-30) mmol/L Anion Gap (5-15) MEQ/L BUN (7-17) mg/dL Creatinine (0.52-1.04) mg/dL Estimated GFR ML/MIN Glucose (74-106) mg/dL Calcium (8.4-10.2) mg/dL Total Bilirubin (0.2-1.3) mg/dL AST (14-36) U/L ALT (0-35) U/L Alkaline Phosphatase (38-126) U/L Troponin I (0.000-0.034) ng/mL Serum Total Protein (6.3-8.2) g/dL Albumin (3.5-5.0) g/dL Urinalys Dipstick Clnc Urine Color (YELLOW) Urine Appearance (CLEAR) Urine pH (5-6) Ur Specific Jackson (1.005-1.025) POC Urine Protein Conf (Negative) Urine Ketones (NEGATIVE) Urine Nitrite (NEGATIVE) Urine Bilirubin (NEGATIVE) Urine Urobilinogen (0-1) mg/dL Urine Leukocytes (NEGATIVE) Urine WBC (Auto) (0-5) /HPF Urine RBC (Auto) (0-2) /HPF U Hyaline Cast (Auto) (0-2) /LPF U Epithel Cells (Auto) (FEW) /HPF Urine Bacteria (Auto) (NEGATIVE) /HPF Urine RBC (0-5) Sammy/ul Urine Mucus (Auto) (NEGATIVE) /HPF Ur Culture Indicated? Urine Glucose (NEGATIVE) mg/dL Influenza Type A Ag NEGATIVE (NEGATIVE) Influenza Type B Ag NEGATIVE (NEGATIVE) RSV (PCR) NEGATIVE (Negative) SARS-CoV-2 (PCR) NEGATIVE (NEGATIVE) - Progress Progress: improved Progress Note: Patient reassessed. She is well. CT head negative. CT cervical spine negative. Cervical collar removed. It appears patient experienced a syncopal episode. We will admit for syncopal work-up. Patient lives alone and is a danger to be discharged home without further investigating the cause of her syncope. Plan of care discussed with patient. She agrees to admission [facility]. Case discussed with Dr. Lira on-call physician who accepts admission to observation. COVID test negative Portions of this note were created with voice recognition technology. There may be grammatical, spelling, punctuation or sound alike errors 01/12/22 03:11 01/12/22 03:12 Discussed with : Beatriz Will see patient in: hospital (observation) Counseled pt/family regarding: lab results, diagnosis, rad results, smoking cessation - Departure Departure Disposition: Observation Clinical Impression: Syncope and collapse, Arachnoid cyst, Empty sella, Old lacunar infarct, Intracranial calcification, Occipital scalp soft tissue hematoma, Scalp laceration Condition: Stable Critical Care Time: No
[2022-01-12] MEDS ORDERED: MORPHINE SULFATE 2 MG INJ IV ONE (03:21)
[2022-01-12] MEDS ORDERED: MORPHINE SULFATE 2 MG INJ ONE (03:23)
[2022-01-12] MEDS ORDERED: MILK OF MAGNESIA 30 ML PO PRN (04:37)
[2022-01-12] MEDS ORDERED: MAALOX ES 30 ML UNIT DOSE PO PRN (04:37)
[2022-01-12] MEDS ORDERED: Zofran 4 MG/2 ML VIAL IV PRN (04:37)
[2022-01-12] MEDS ORDERED: Senokot-S Tablet PO PRN (04:37)
[2022-01-12] MEDS ORDERED: TYLENOL 325 MG PO PRN (04:37)
[2022-01-12 05:42] LABS: Appearance CLEAR (CLEAR)
[2022-01-12 05:43] LABS: Bilirubin NEGATIVE (NEGATIVE); Dipstick done @ ? MAIN LAB; Glucose NEGATIVE (NEGATIVE); Ketones NEGATIVE (NEGATIVE); Nitrite NEGATIVE (NEGATIVE); Protein,Urine Dip NEGATIVE (Negative); RBC NEGATIVE Ery/ul (0-5); Urobilinogen 0.2 mg/dL (0-1)
[2022-01-12 05:45] LABS: Bacteria RARE /HPF (NEGATIVE); Epithelial Cells RARE /HPF (FEW); Hyaline Casts 0-2 /LPF (0-2); Mucus SLIGHT /HPF (NEGATIVE); Urine Cultured Indicated? NO
--- NOTE | 2022-01-12 08:58 | XRAY ---
Indication: Pain following fall. Comparison: None 2 view left hip demonstrates osteopenia, moderate degenerative arthropathy, moderate lower lumbar degenerative spondylosis with L3-L4 fusion hardware, and tiny left gluteal calcified injection granulomas. No other bony, articular, or soft tissue abnormalities.
--- NOTE | 2022-01-12 09:00 | XRAY ---
Indication: Posterior laceration following fall. Multiple contiguous axial images obtained through the head without contrast. Comparison: None Age-appropriate global atrophy. Small remote lacunar infarct right basal ganglia. Left posterior fossa demonstrates 7 x 4.2 x 2.6 cm arachnoid cyst. No acute intracranial hemorrhage or mass effect. Fourth ventricle is midline without hydrocephalus. Yoder-white matter differentiation preserved. Small right posterior scalp hematoma. Bony calvarium intact. Paranasal sinuses and mastoid air cells are clear. Impression: 1. Small right posterior scalp hematoma. No underlying fracture or acute intracranial abnormalities. 2. Incidental remote lacunar infarct right basal ganglia and left posterior fossa arachnoid cyst. Comment: Preliminary interpretation made by [facility]. No critical discrepancy.
--- NOTE | 2022-01-12 09:03 | XRAY ---
Indication: Posterior head laceration following fall. Multiple contiguous axial images obtained through the cervical spine. Sagittal and coronal reformatted images obtained. Comparison: None Osseous structures demineralized consistent with patient's age. Axial images negative for acute fracture, suspicious bony lesions, or spinal canal stenosis. There is mild/moderate C3-C7 degenerative endplate spurring and mild/moderate multilevel bilateral degenerative facet hypertrophy. Mild atlantoaxial degenerative arthropathy. Sagittal and coronal reformatted images demonstrates lordotic straightening, positional versus paraspinal spasm. C6-C7 degenerative disc space loss. No acute compression fracture, subluxation, or jumped facet. Normal appearing craniocervical junction. Visualized noncontrasted soft tissues demonstrates minimal bilateral carotid calcifications and right apical pleural thickening. Impression: 1. Cervical lordotic straightening, positional versus paraspinal spasm. Negative acute fracture/subluxation. 2. Incidental osteopenia, multilevel degenerative changes, minimal carotic ossifications, and right apical pleural thickening. Comment: Preliminary interpretation made by [facility]. No critical discrepancy.
[2022-01-12] MEDS ORDERED: PROVENTIL 2.5 MG/3 ML NEB IH SCH (11:00)
[2022-01-12 12:35] VITALS: BP 109/63; PULSE 85
--- NOTE | 2022-01-12 14:17 | PCM.SSS ---
History of Present Illness - Chief Complaint Chief Complaint: syncope History of Present Illness: is a 76 year old female.presents to emergency department via EMS for evaluation of a fall. Patient presented with a cervical collar not boarded. Patient dates she was at home and her garage when she fell. Patient does not recall exactly what occurred prior to her fall nor after her fall. Patient states that she awoke on the floor and was able to call 911. Upon EMS arrival patient appeared confused. Patient lives alone. Patient has a laceration to the back of her head. Patient does not recall experiencing any chest pain or shortness of breath prior to her fall. No numbness tingling or weakness. Symptoms are mild to moderate in intensity. No specific worsening improving factors. Patient voices no other complaints or concerns at this time. - Review of Systems Constitutional: No Fever, No Chills Eyes: No Symptoms Ears, Nose, & Throat: No Symptoms Respiratory: No Cough, No Short Of Breath Cardiac: Syncope, No Chest Pain, No Edema Abdominal/Gastrointestinal: No Abdominal Pain, No Nausea, No Vomiting, No Diarrhea Genitourinary Symptoms: No Dysuria Musculoskeletal: No Back Pain, No Neck Pain Skin: No Rash Neurological: No Dizziness, No Focal Weakness, No Sensory Changes Psychological: No Symptoms Endocrine: No Symptoms Hematologic/Lymphatic: No Symptoms Immunological/Allergic: No Symptoms Medications & Allergies Home Medications: Home Medication List Celecoxib [Celebrex] 200 mg PO DAILY 10/15/13 [History Confirmed 01/12/22] Levothyroxine Sodium 50 Mcg [Synthroid 50 Mcg] 50 mcg PO DAILY 10/15/13 [History Confirmed 01/12/22] Simvastatin 40 mg [Zocor 40 mg] 40 mg PO HS 10/15/13 [History Confirmed 01/12/22] Imipramine HCl 50 mg PO QHS 12/11/17 [History Confirmed 01/12/22] Methotrexate Sodium 2.5 mg [Trexall 2.5 mg] 15 mg PO WEEKLY 12/11/17 [History Confirmed 01/12/22] Losartan Potassium [Cozaar] 25 mg PO DAILY 03/17/21 [History Confirmed 01/12/22] Omeprazole 40 mg PO DAILY 03/17/21 [History Confirmed 01/12/22] Oxybutynin Chloride 5 mg PO BID 03/17/21 [History Confirmed 01/12/22] Albuterol 2.5 mg/3 ml Neb [Proventil 2.5 mg/3 ml Neb] 1 neb IH Q4-6HPRN PRN 03/18/21 [History Confirmed 01/12/22] Fluticasone/Vilanterol [Breo Ellipta 100-25 Mcg INH] 1 each IH DAILY 01/12/22 [History Confirmed 01/12/22] Folic Acid 1 mg [Folate 1 mg] 1 mg PO DAILY 01/12/22 [History Confirmed 01/12/22] Allergies/Adverse Reactions: Allergies Allergy/AdvReac Type Severity Reaction Status Date / Time DISSOLVABLE SUTURES Allergy Severe Uncoded 01/12/22 01:13 - Past Medical History Past Medical History: Yes Neurological History: No Pertinent History, Migraines, Peripheral Neuropathy ENT History: Cataracts Cardiac History: Hypertension Respiratory History: COPD Endocrine Medical History: Hypothyroidism Musculoskelatal History: Arthritis GI Medical History: GERD, Other History: No Pertinent History Pyscho-Social History: Other Reproductive Disorders: No Pertinent History Comment: Son is currently dealing with brain tumor and is going to have surgery for shunt and pt has stress as a result. - Female History Are you now?: No - Past Surgical History Past Surgical History: Yes Neuro Surgical History: No Pertinent History Cardiac History: No Pertinent History Respiratory Surgery: No Pertinent History GI Surgical History: Appendectomy Genitourinary Surgical Hx: No Pertinent History Musculskeletal Surgical Hx: Orthopedic Surgery Female Surgical History: Hysterectomy, Tubal Ligation Other Surgical History: back surgery x two{ stenosis},left foot nerve release,left hand trigger finger release,A&P repair-colporrhaphy,childbirth x two, hip replacement - Social History Smoking Status: Current every day smoker How long have you smoked: 50yrs Exposure to second hand smoke: No Alcohol: None Drug Use: none - Physical Exam Vital Signs: Vital Signs - 24 hr Temp Pulse Resp BP Pulse Ox 01/12/22 12:00 96.9 F 85 24 109/63 92 L 01/12/22 10:52 76 18 93 L 01/12/22 07:56 97.8 F 89 19 135/60 94 L 01/12/22 04:35 97 F 81 20 142/67 97 01/12/22 04:12 93 L 01/12/22 04:00 72 18 140/76 93 L 01/12/22 03:00 78 16 126/85 97 01/12/22 01:55 85 27 H 93 L 01/12/22 00:55 98.6 F 84 18 93/51 93 L General Appearance: no apparent distress, alert Neurologic Exam: alert, oriented x 3, cooperative, normal mood/affect, nml cerebellar function, nml station & gait, sensation nml, No motor deficits Eye Exam: PERRL/EOMI, eyes nml inspection Ears, Nose, Throat Exam: normal ENT inspection, TMs normal, pharynx normal, moist mucous membranes Neck Exam: normal inspection, non-tender, supple, full range of motion Respiratory Exam: normal breath sounds, lungs clear, No respiratory distress Cardiovascular Exam: regular rate/rhythm, normal heart sounds, normal peripheral pulses Gastrointestinal/Abdomen Exam: soft, normal bowel sounds, No tenderness, No mass Back Exam: normal inspection, normal range of motion, No CVA tenderness, No v ertebral tenderness Extremity Exam: normal inspection, normal range of motion, pelvis stable Skin Exam: normal color, warm, dry, No rash Wound Assessment: Skin/Wound Assessment Wound/Incision Assessment Start: 01/12/22 05:14 Text: Status: Active Freq: Q6H Protocol: Document 01/12/22 11:14 EK (Rec: 01/12/22 12:46 EK [id number]) Wound/Incision Assessment Posterior Occipital Wound Assessment Shift Assessment Wound Type Laceration Wound Stage Non Pressure Wound Drainage Amount None Drainage Description DRIED BLOOD NOTED General Appearance Well Approximated,[place] Intact,Open to air Comment 3 VONDA Wound Photo Photo Taken No Lymphatic Exam: No adenopathy Results - Labs Lab/Micro Results: Lab Results-Last 24 Hours 01/12/22 01/12/22 01/12/22 Range/Units 01:47 01:48 01:48 WBC 13.2 H (4.0-10.5) x10^3/uL RBC 3.55 L (4.1-5.4) x10^6/uL Hgb 12.7 (12.0-16.0) g/dL Hct 37.7 (35-47) % MCV 106.2 H (78-100) fL MCH 35.8 H (26-32) pg MCHC 33.7 (32-36) g/dL RDW 14.6 H (11.5-14.0) % Plt Count 353 (150-450) x10^3/uL MPV 9.5 (7.5-11.0) fL Gran % 78.5 H (36.0-66.0) % Immature Gran % (Auto) 0.8 H (0.00-0.4) % Nucleat RBC Rel Count 0.0 (0.00-0.1) % Eos # (Auto) 0.19 (0-0.5) x10^3/uL Immature Gran # (Auto) 0.11 H (0.00-0.03) x10^3u/L Absolute Lymphs (auto) 1.59 (1.0-4.6) x10^3/uL Absolute Monos (auto) 0.92 (0.0-1.3) x10^3/uL Absolute Nucleated RBC 0.00 (0.00-0.01) x10^3u/L Lymphocytes % 12.0 L (24.0-44.0) % Monocytes % 7.0 (0.0-12.0) % Eosinophils % 1.4 (0.00-5.0) % Basophils % 0.3 (0.0-0.4) % Absolute Granulocytes 10.38 H (1.4-6.9) x10^3/uL Basophils # 0.04 (0-0.4) x10^3/uL Sodium 136 L (137-145) mmol/L Potassium 4.2 (3.5-5.1) mmol/L Chloride 105 (98-107) mmol/L Carbon Dioxide 22 (22-30) mmol/L Anion Gap 12.7 (5-15) MEQ/L BUN 20 H (7-17) mg/dL Creatinine 0.72 (0.52-1.04) mg/dL Estimated GFR > 60.0 ML/MIN Glucose 134 H (74-106) mg/dL Calcium 9.3 (8.4-10.2) mg/dL Total Bilirubin 0.30 (0.2-1.3) mg/dL AST 31 (14-36) U/L ALT 20 (0-35) U/L Alkaline Phosphatase 77 (38-126) U/L Troponin I (0.000-0.034) ng/mL Serum Total Protein 6.7 (6.3-8.2) g/dL Albumin 4.0 (3.5-5.0) g/dL Urinalys Dipstick Clnc Urine Color (YELLOW) Urine Appearance (CLEAR) Urine pH (5-6) Ur Specific Ama (1.005-1.025) POC Urine Protein Conf (Negative) Urine Ketones (NEGATIVE) Urine Nitrite (NEGATIVE) Urine Bilirubin (NEGATIVE) Urine Urobilinogen (0-1) mg/dL Urine Leukocytes (NEGATIVE) Urine WBC (Auto) (0-5) /HPF Urine RBC (Auto) (0-2) /HPF U Hyaline Cast (Auto) (0-2) /LPF U Epithel Cells (Auto) (FEW) /HPF Urine Bacteria (Auto) (NEGATIVE) /HPF Urine RBC (0-5) Sammy/ul Urine Mucus (Auto) (NEGATIVE) /HPF Ur Culture Indicated? Urine Glucose (NEGATIVE) mg/dL Influenza Type A Ag NEGATIVE (NEGATIVE) Influenza Type B Ag NEGATIVE (NEGATIVE) RSV (PCR) NEGATIVE (Negative) SARS-CoV-2 (PCR) NEGATIVE (NEGATIVE) 01/12/22 01/12/22 01/12/22 Range/Units 01:48 04:23 05:12 WBC (4.0-10.5) x10^3/uL RBC (4.1-5.4) x10^6/uL Hgb (12.0-16.0) g/dL Hct (35-47) % MCV (78-100) fL MCH (26-32) pg MCHC (32-36) g/dL RDW (11.5-14.0) % Plt Count (150-450) x10^3/uL MPV (7.5-11.0) fL Gran % (36.0-66.0) % Immature Gran % (Auto) (0.00-0.4) % Nucleat RBC Rel Count (0.00-0.1) % Eos # (Auto) (0-0.5) x10^3/uL Immature Gran # (Auto) (0.00-0.03) x10^3u/L Absolute Lymphs (auto) (1.0-4.6) x10^3/uL Absolute Monos (auto) (0.0-1.3) x10^3/uL Absolute Nucleated RBC (0.00-0.01) x10^3u/L Lymphocytes % (24.0-44.0) % Monocytes % (0.0-12.0) % Eosinophils % (0.00-5.0) % Basophils % (0.0-0.4) % Absolute Granulocytes (1.4-6.9) x10^3/uL Basophils # (0-0.4) x10^3/uL Sodium (137-145) mmol/L Potassium (3.5-5.1) mmol/L Chloride (98-107) mmol/L Carbon Dioxide (22-30) mmol/L Anion Gap (5-15) MEQ/L BUN (7-17) mg/dL Creatinine (0.52-1.04) mg/dL Estimated GFR ML/MIN Glucose (74-106) mg/dL Calcium (8.4-10.2) mg/dL Total Bilirubin (0.2-1.3) mg/dL AST (14-36) U/L ALT (0-35) U/L Alkaline Phosphatase (38-126) U/L Troponin I < 0.012 < 0.012 (0.000-0.034) ng/mL Serum Total Protein (6.3-8.2) g/dL Albumin (3.5-5.0) g/dL Urinalys Dipstick Clnc MAIN LAB Urine Color YELLOW (YELLOW) Urine Appearance CLEAR (CLEAR) Urine pH 6.0 (5-6) Ur Specific Ama 1.020 (1.005-1.025) POC Urine Protein Conf NEGATIVE (Negative) Urine Ketones NEGATIVE (NEGATIVE) Urine Nitrite NEGATIVE (NEGATIVE) Urine Bilirubin NEGATIVE (NEGATIVE) Urine Urobilinogen 0.2 (0-1) mg/dL Urine Leukocytes NEGATIVE (NEGATIVE) Urine WBC (Auto) 3-5 (0-5) /HPF Urine RBC (Auto) NONE (0-2) /HPF U Hyaline Cast (Auto) 0-2 (0-2) /LPF U Epithel Cells (Auto) RARE (FEW) /HPF Urine Bacteria (Auto) RARE (NEGATIVE) /HPF Urine RBC NEGATIVE (0-5) Sammy/ul Urine Mucus (Auto) SLIGHT (NEGATIVE) /HPF Ur Culture Indicated? NO Urine Glucose NEGATIVE (NEGATIVE) mg/dL Influenza Type A Ag (NEGATIVE) Influenza Type B Ag (NEGATIVE) RSV (PCR) (Negative) SARS-CoV-2 (PCR) (NEGATIVE) 01/12/22 01/12/22 01/12/22 Range/Units 07:30 10:00 12:59 WBC (4.0-10.5) x10^3/uL RBC (4.1-5.4) x10^6/uL Hgb (12.0-16.0) g/dL Hct (35-47) % MCV (78-100) fL MCH (26-32) pg MCHC (32-36) g/dL RDW (11.5-14.0) % Plt Count (150-450) x10^3/uL MPV (7.5-11.0) fL Gran % (36.0-66.0) % Immature Gran % (Auto) (0.00-0.4) % Nucleat RBC Rel Count (0.00-0.1) % Eos # (Auto) (0-0.5) x10^3/uL Immature Gran # (Auto) (0.00-0.03) x10^3u/L Absolute Lymphs (auto) (1.0-4.6) x10^3/uL Absolute Monos (auto) (0.0-1.3) x10^3/uL Absolute Nucleated RBC (0.00-0.01) x10^3u/L Lymphocytes % (24.0-44.0) % Monocytes % (0.0-12.0) % Eosinophils % (0.00-5.0) % Basophils % (0.0-0.4) % Absolute Granulocytes (1.4-6.9) x10^3/uL Basophils # (0-0.4) x10^3/uL Sodium (137-145) mmol/L Potassium (3.5-5.1) mmol/L Chloride (98-107) mmol/L Carbon Dioxide (22-30) mmol/L Anion Gap (5-15) MEQ/L BUN (7-17) mg/dL Creatinine (0.52-1.04) mg/dL Estimated GFR ML/MIN Glucose (74-106) mg/dL Calcium (8.4-10.2) mg/dL Total Bilirubin (0.2-1.3) mg/dL AST (14-36) U/L ALT (0-35) U/L Alkaline Phosphatase (38-126) U/L Troponin I < 0.012 < 0.012 < 0.012 (0.000-0.034) ng/mL Serum Total Protein (6.3-8.2) g/dL Albumin (3.5-5.0) g/dL Urinalys Dipstick Clnc Urine Color (YELLOW) Urine Appearance (CLEAR) Urine pH (5-6) Ur Specific Ama (1.005-1.025) POC Urine Protein Conf (Negative) Urine Ketones (NEGATIVE) Urine Nitrite (NEGATIVE) Urine Bilirubin (NEGATIVE) Urine Urobilinogen (0-1) mg/dL Urine Leukocytes (NEGATIVE) Urine WBC (Auto) (0-5) /HPF Urine RBC (Auto) (0-2) /HPF U Hyaline Cast (Auto) (0-2) /LPF U Epithel Cells (Auto) (FEW) /HPF Urine Bacteria (Auto) (NEGATIVE) /HPF Urine RBC (0-5) Sammy/ul Urine Mucus (Auto) (NEGATIVE) /HPF Ur Culture Indicated? Urine Glucose (NEGATIVE) mg/dL Influenza Type A Ag (NEGATIVE) Influenza Type B Ag (NEGATIVE) RSV (PCR) (Negative) SARS-CoV-2 (PCR) (NEGATIVE) - Radiology Impressions Radiology Exams & Impressions: Radiology Procedures Category Date Time Status CERVICAL SPINE WO CONTRAST [CT] Stat Exams 01/12/22 01:25 Completed HEAD WITHOUT CONTRAST [CT] Stat Exams 01/12/22 01:25 Completed HIP UNI (2V) INCL PEL IF DONE Stat Exams 01/12/22 03:[address]/HEAD WITHOUT CONTRAST Indication: Posterior laceration following fall. Multiple contiguous axial images obtained through the head without contrast. Comparison: None Age-appropriate global atrophy. Small remote lacunar infarct right basal ganglia. Left posterior fossa demonstrates 7 x 4.2 x 2.6 cm arachnoid cyst. No acute intracranial hemorrhage or mass effect. Fourth ventricle is midline without hydrocephalus. Yoder-white matter differentiation preserved. Small right posterior scalp hematoma. Bony calvarium intact. Paranasal sinuses and mastoid air cells are clear. Impression: 1. Small right posterior scalp hematoma. No underlying fracture or acute intracranial abnormalities. 2. Incidental remote lacunar infarct right basal ganglia and left posterior fossa arachnoid cyst. Comment: Preliminary interpretation made by [facility]. No critical discrepancy. 0001 CT/CERVICAL SPINE WO CONTRAST Indication: Posterior head laceration following fall. Multiple contiguous axial images obtained through the cervical spine. Sagittal and coronal reformatted images obtained. Comparison: None Osseous structures demineralized consistent with patient's age. Axial images negative for acute fracture, suspicious bony lesions, or spinal canal stenosis. There is mild/moderate C3-C7 degenerative endplate spurring and mild/moderate multilevel bilateral degenerative facet hypertrophy. Mild atlantoaxial degenerative arthropathy. Sagittal and coronal reformatted images demonstrates lordotic straightening, positional versus paraspinal spasm. C6-C7 degenerative disc space loss. No acute compression fracture, subluxation, or jumped facet. Normal appearing craniocervical junction. Visualized noncontrasted soft tissues demonstrates minimal bilateral carotid calcifications and right apical pleural thickening. Impression: 1. Cervical lordotic straightening, positional versus paraspinal spasm. Negative acute fracture/subluxation. 2. Incidental osteopenia, multilevel degenerative changes, minimal carotic ossifications, and right apical pleural thickening. - Other Procedures and Tests Respiratory Therapy 01/12/22 05:14 Smoking Cessation Education ONCE 01/13/22 05:00 EKG ROUTINE 01/13/22 07:00 Respiratory Therapy Assessment DAILY 01/14/22 05:00 EKG ROUTINE 01/15/22 05:00 EKG ROUTINE Assessment/Plan (1) Syncope and collapse Current Visit: Yes Status: Acute Assessment & Plan: Chief Complaint Diagnosis syncope Allergies Allergy/AdvReac Type Severity Reaction Status Date / Time DISSOLVABLE SUTURES Allergy Severe Uncoded 01/12/22 01:13 Vital Signs (Last 24 hours) Temp Pulse Resp BP Pulse Ox 01/12/22 12:00 96.9 F 85 24 109/63 92 L 01/12/22 10:52 76 18 93 L 01/12/22 07:56 97.8 F 89 19 135/60 94 L 01/12/22 04:35 97 F 81 20 142/67 97 01/12/22 04:12 93 L 01/12/22 04:00 72 18 140/76 93 L 01/12/22 03:00 78 16 126/85 97 01/12/22 01:55 85 27 H 93 L 01/12/22 00:55 98.6 F 84 18 93/51 93 L Home Medications Medication Instructions Recorded Confirmed Last Taken Type Fluticasone/Vilanterol [Breo 1 each IH DAILY 01/12/22 01/12/22 01/11/22 07:00 History Ellipta 100-25 Mcg INH] Folic Acid 1 mg [Folate 1 mg] 1 mg PO DAILY 01/12/22 01/12/22 Unknown History Current Medications Generic Name Dose Route Start Last Admin Trade Name [place] PRN Reason Stop Dose Admin Acetaminophen 650 mg 01/12/22 04:37 01/12/22 08:16 Acetaminophen 325 Mg Tablet PO 02/11/22 04:36 650 mg Q4H PRN PRN Administration PAIN AND/OR FEVER Al Hydrox/Mg Hydrox/Simethicone 30 ml 01/12/22 04:37 Mag Hydrox/Al Hydrox/Simeth 30 Ml Udcup PO 02/11/22 04:36 Q4H PRN PRN INDIGESTION Albuterol Sulfate 2.5 mg 01/12/22 11:00 01/12/22 10:47 Albuterol Sulfate 2.5 Mg/3 Ml Neb IH 02/11/22 10:59 2.5 mg QIDRT NANCY Administration Magnesium Hydroxide 30 - 60 ml 01/12/22 04:37 Magnesium Hydroxide 30 Ml Udcup PO 02/11/22 04:36 QDP PRN CONSTIPATION Ondansetron HCl 4 mg 01/12/22 04:37 Ondansetron Hcl 4 Mg/2 Ml Vial IV 02/11/22 04:36 Q4H PRN PRN NAUSEA/VOMITING Senna/Docusate Sodium 2 udtab 01/12/22 04:37 Senna/Docusate Sodium 1 Udtab Tablet PO 02/11/22 04:36 BID PRN PRN CONSTIPATION Discontinued Medications Generic Name Dose Route Start Last Admin Trade Name Fredavion PRN Reason Stop Dose Admin Morphine Sulfate 2 mg 01/12/22 03:21 01/12/22 03:23 Morphine Sulfate 2 Mg/Ml Inj IV 01/12/22 03:22 2 mg STAT ONE Administration Morphine Sulfate Confirm 01/12/22 03:23 Morphine Sulfate 2 Mg/Ml Inj Administered 01/12/22 03:24 Dose 2 mg .ROUTE .STK-MED ONE Intake & Output (Last 24 hours) 01/10/22 01/11/22 01/12/22 01/13/22 11:59 11:59 11:59 11:59 Intake Total 240 Output Total 300 Balance -60 Weight 57.3 kg Laboratory Results (Last 24 hours) 01/12/22 01/12/22 01/12/22 12:59 10:00 07:30 WBC RBC Hgb Hct MCV MCH MCHC RDW Plt Count MPV Gran % Immature Gran % (Auto) Nucleat RBC Rel Count Eos # (Auto) Immature Gran # (Auto) Absolute Lymphs (auto) Absolute Monos (auto) Absolute Nucleated RBC Lymphocytes % Monocytes % Eosinophils % Basophils % Absolute Granulocytes Basophils # Sodium Potassium Chloride Carbon Dioxide Anion Gap BUN Creatinine Estimated GFR Glucose Calcium Total Bilirubin AST ALT Alkaline Phosphatase Troponin I < 0.012 < 0.012 < 0.012 Serum Total Protein Albumin Urinalys Dipstick Clnc Urine Color Urine Appearance Urine pH Ur Specific Ama POC Urine Protein Conf Urine Ketones Urine Nitrite Urine Bilirubin Urine Urobilinogen Urine Leukocytes Urine WBC (Auto) Urine RBC (Auto) U Hyaline Cast (Auto) U Epithel Cells (Auto) Urine Bacteria (Auto) Urine RBC Urine Mucus (Auto) Ur Culture Indicated? Urine Glucose Influenza Type A Ag Influenza Type B Ag RSV (PCR) SARS-CoV-2 (PCR) 01/12/22 01/12/22 01/12/22 05:12 04:23 01:48 WBC RBC Hgb Hct MCV MCH MCHC RDW Plt Count MPV Gran % Immature Gran % (Auto) Nucleat RBC Rel Count Eos # (Auto) Immature Gran # (Auto) Absolute Lymphs (auto) Absolute Monos (auto) Absolute Nucleated RBC Lymphocytes % Monocytes % Eosinophils % Basophils % Absolute Granulocytes Basophils # Sodium Potassium Chloride Carbon Dioxide Anion Gap BUN Creatinine Estimated GFR Glucose Calcium Total Bilirubin AST ALT Alkaline Phosphatase Troponin I < 0.012 < 0.012 Serum Total Protein Albumin Urinalys Dipstick Clnc MAIN LAB Urine Color YELLOW Urine Appearance CLEAR Urine pH 6.0 Ur Specific Ama 1.020 POC Urine Protein Conf NEGATIVE Urine Ketones NEGATIVE Urine Nitrite NEGATIVE Urine Bilirubin NEGATIVE Urine Urobilinogen 0.2 Urine Leukocytes NEGATIVE Urine WBC (Auto) 3-5 Urine RBC (Auto) NONE U Hyaline Cast (Auto) 0-2 U Epithel Cells (Auto) RARE Urine Bacteria (Auto) RARE Urine RBC NEGATIVE Urine Mucus (Auto) SLIGHT Ur Culture Indicated? NO Urine Glucose NEGATIVE Influenza Type A Ag Influenza Type B Ag RSV (PCR) SARS-CoV-2 (PCR) 01/12/22 01/12/22 01/12/22 01:48 01:48 01:47 WBC 13.2 H RBC 3.55 L Hgb 12.7 Hct 37.7 MCV 106.2 H MCH 35.8 H MCHC 33.7 RDW 14.6 H Plt Count 353 MPV 9.5 Gran % 78.5 H Immature Gran % (Auto) 0.8 H Nucleat RBC Rel Count 0.0 Eos # (Auto) 0.19 Immature Gran # (Auto) 0.11 H Absolute Lymphs (auto) 1.59 Absolute Monos (auto) 0.92 Absolute Nucleated RBC 0.00 Lymphocytes % 12.0 L Monocytes % 7.0 Eosinophils % 1.4 Basophils % 0.3 Absolute Granulocytes 10.38 H Basophils # 0.04 Sodium 136 L Potassium 4.2 Chloride 105 Carbon Dioxide 22 Anion Gap 12.7 BUN 20 H Creatinine 0.72 Estimated GFR > 60.0 Glucose 134 H Calcium 9.3 Total Bilirubin 0.30 AST 31 ALT 20 Alkaline Phosphatase 77 Troponin I Serum Total Protein 6.7 Albumin 4.0 Urinalys Dipstick Clnc Urine Color Urine Appearance Urine pH Ur Specific Ama POC Urine Protein Conf Urine Ketones Urine Nitrite Urine Bilirubin Urine Urobilinogen Urine Leukocytes Urine WBC (Auto) Urine RBC (Auto) U Hyaline Cast (Auto) U Epithel Cells (Auto) Urine Bacteria (Auto) Urine RBC Urine Mucus (Auto) Ur Culture Indicated? Urine Glucose Influenza Type A Ag NEGATIVE Influenza Type B Ag NEGATIVE RSV (PCR) NEGATIVE SARS-CoV-2 (PCR) NEGATIVE Orders (Last 24 hours) Category Date Time Status Bedrest with BRP/BSC ROUTINE Activity 01/12/22 04:37 Active Cistern Room Operator STAT Care 01/12/22 01:24 Completed Code Status Order ROUTINE Care 01/12/22 04:37 Active EKG-ER Only STAT Care 01/12/22 01:23 Completed IV Care Q6H Care 01/12/22 04:37 Active IV Insertion STAT Care 01/12/22 01:23 Completed Implement Chest Pain Pathway ROUTINE Care 01/12/22 04:[address] in Observation ROUTINE Care 01/12/22 04:37 Active Pulse Oximetry (ED) STAT Care 01/12/22 01:23 Completed Veronica Nava ROUTINE Care 01/12/22 04:37 Active Telemetry q6h Care 01/12/22 04:37 Active Weight,Daily 0600 Care 01/12/22 04:37 Active Chief Design Drafter/Discharge Plan ROUTINE Cons 01/12/22 05:14 Active Consistent Carbohydrate Diet 1800 Calorie Diet 01/12/22 Breakfast Active Discharge Routine Discharge 01/12/22 13:44 Ordered CERVICAL SPINE WO CONTRAST [CT] Stat Exams 01/12/22 01:25 Completed HEAD WITHOUT CONTRAST [CT] Stat Exams 01/12/22 01:25 Completed HIP UNI (2V) INCL PEL IF DONE Stat Exams 01/12/22 03:31 Completed CBC W DIFF Stat Lab 01/12/22 01:48 Completed CMP Stat Lab 01/12/22 01:48 Completed COVID/FLU/RSV Panel Routine Lab 01/12/22 01:47 Completed LIPID PROFILE AM.LAB Lab 01/13/22 04:00 Ordered TROPONIN Q3H Lab 01/12/22 01:48 Completed TROPONIN Q3H Lab 01/12/22 05:12 Completed TROPONIN Q3H Lab 01/12/22 07:30 Completed TROPONIN Q3H Lab 01/12/22 10:00 Completed TROPONIN Q3H Lab 01/12/22 12:59 Completed UA W/RFX CULTURE Stat Lab 01/12/22 04:23 Completed Acetaminophen 325 mg [Tylenol 325 mg] Med 01/12/22 04:37 Active 650 mg PO Q4H PRN PRN Albuterol 2.5 mg/3 ml Neb [Proventil 2.5 mg/3 ml Neb Med 01/12/22 11:00 Active ] 2.5 mg IH QIDRT Mag Hydrox/Al Hydrox/Simeth [Maalox Es 30 ml Unit Med 01/12/22 04:37 Active Dose] 30 ml PO Q4H PRN PRN Magnesium Hydroxide 30 ml [Milk of Magnesia 30 ml Med 01/12/22 04:37 Active ] 30 - 60 ml PO QDP PRN Morphine Sulfate 2 mg Inj Med 01/12/22 03:23 Discontinued 2 mg .ROUTE .STK-MED ONE Morphine Sulfate 2 mg Inj Med 01/12/22 03:21 Discontinued 2 mg IV STAT ONE Ondansetron HCl 4 mg/2 ml [Zofran 4 MG/2 ML VIAL] Med 01/12/22 04:37 Active 4 mg IV Q4H PRN PRN Senna/Docusate Sodium Tab [Senokot-S Tablet] Med 01/12/22 04:37 Active 2 udtab PO BID PRN PRN OT Screen per Nursing Assess ONCE OT 01/12/22 05:14 Completed PT Screen per Nursing Assess ONCE PT 01/12/22 05:14 Active EKG ROUTINE RT 01/12/22 09:30 Completed EKG ROUTINE RT 01/13/22 05:00 Active EKG ROUTINE RT 01/14/22 05:00 Active EKG ROUTINE RT 01/15/22 05:00 Active Pulse Oximetry ROUTINE RT 01/12/22 09:54 Active Respiratory Therapy Assessment DAILY RT 01/13/22 07:00 Active Smoking Cessation Education ONCE RT 01/12/22 05:14 Active Transfer Order Routine Transfer 01/12/22 Completed Patient Care Notes (Last 24 hours) 01/12/22 09:20 Nursing Note by Lakisha Borrego CALLED DR. MATT' OFFICE TO REQUEST RECORDS ( REQUESTED BY DR. JACOB). SELENE STATED SHE WILL FAX RECORDS TO US. Initialized on 01/12/22 09:20 - END OF NOTE Talked to patient about possible causes of her syncopal episodes. I advised her to follow up with Dr Matt and Dr meme reyes (cardiology) for further workup. patient and her daughter understood verbalized instructions Code(s): R55 - SYNCOPE AND COLLAPSE (2) Arachnoid cyst Current Visit: Yes Status: Acute Code(s): G93.0 - CEREBRAL CYSTS (3) Empty sella Current Visit: Yes Status: Acute Code(s): E23.6 - OTHER DISORDERS OF PITUITARY GLAND Hospital Summary - Vitals & Intake/Output Vital Signs: Vital Signs Temperature 96.9 F 01/12/22 12:00 Pulse Rate 85 01/12/22 12:00 Respiratory Rate 24 01/12/22 12:00 Blood Pressure 109/63 01/12/22 12:00 O2 Sat by Pulse Oximetry 92 L 01/12/22 12:00 Intake & Output: Intake & Output 05/23/22 01/11/22 01/12/22 01/13/22 11:59 11:59 11:59 11:59 Intake Total 240 Output Total 300 Balance -60 Weight 57.3 kg - Lab Result Diagrams: 01/12/22 01:48 01/12/22 01:48 Lab Results-Last 24 Hrs: Lab Results-Last 24 Hours 01/12/22 01/12/22 01/12/22 Range/Units 01:47 01:48 01:48 WBC 13.2 H (4.0-10.5) x10^3/uL RBC 3.55 L (4.1-5.4) x10^6/uL Hgb 12.7 (12.0-16.0) g/dL Hct 37.7 (35-47) % MCV 106.2 H (78-100) fL MCH 35.8 H (26-32) pg MCHC 33.7 (32-36) g/dL RDW 14.6 H (11.5-14.0) % Plt Count 353 (150-450) x10^3/uL MPV 9.5 (7.5-11.0) fL Gran % 78.5 H (36.0-66.0) % Immature Gran % (Auto) 0.8 H (0.00-0.4) % Nucleat RBC Rel Count 0.0 (0.00-0.1) % Eos # (Auto) 0.19 (0-0.5) x10^3/uL Immature Gran # (Auto) 0.11 H (0.00-0.03) x10^3u/L Absolute Lymphs (auto) 1.59 (1.0-4.6) x10^3/uL Absolute Monos (auto) 0.92 (0.0-1.3) x10^3/uL Absolute Nucleated RBC 0.00 (0.00-0.01) x10^3u/L Lymphocytes % 12.0 L (24.0-44.0) % Monocytes % 7.0 (0.0-12.0) % Eosinophils % 1.4 (0.00-5.0) % Basophils % 0.3 (0.0-0.4) % Absolute Granulocytes 10.38 H (1.4-6.9) x10^3/uL Basophils # 0.04 (0-0.4) x10^3/uL Sodium 136 L (137-145) mmol/L Potassium 4.2 (3.5-5.1) mmol/L Chloride 105 (98-107) mmol/L Carbon Dioxide 22 (22-30) mmol/L Anion Gap 12.7 (5-15) MEQ/L BUN 20 H (7-17) mg/dL Creatinine 0.72 (0.52-1.04) mg/dL Estimated GFR > 60.0 ML/MIN Glucose 134 H (74-106) mg/dL Calcium 9.3 (8.4-10.2) mg/dL Total Bilirubin 0.30 (0.2-1.3) mg/dL AST 31 (14-36) U/L ALT 20 (0-35) U/L Alkaline Phosphatase 77 (38-126) U/L Troponin I (0.000-0.034) ng/mL Serum Total Protein 6.7 (6.3-8.2) g/dL Albumin 4.0 (3.5-5.0) g/dL Urinalys Dipstick Clnc Urine Color (YELLOW) Urine Appearance (CLEAR) Urine pH (5-6) Ur Specific Ama (1.005-1.025) POC Urine Protein Conf (Negative) Urine Ketones (NEGATIVE) Urine Nitrite (NEGATIVE) Urine Bilirubin (NEGATIVE) Urine Urobilinogen (0-1) mg/dL Urine Leukocytes (NEGATIVE) Urine WBC (Auto) (0-5) /HPF Urine RBC (Auto) (0-2) /HPF U Hyaline Cast (Auto) (0-2) /LPF U Epithel Cells (Auto) (FEW) /HPF Urine Bacteria (Auto) (NEGATIVE) /HPF Urine RBC (0-5) Sammy/ul Urine Mucus (Auto) (NEGATIVE) /HPF Ur Culture Indicated? Urine Glucose (NEGATIVE) mg/dL Influenza Type A Ag NEGATIVE (NEGATIVE) Influenza Type B Ag NEGATIVE (NEGATIVE) RSV (PCR) NEGATIVE (Negative) SARS-CoV-2 (PCR) NEGATIVE (NEGATIVE) 01/12/22 01/12/22 01/12/22 Range/Units 01:48 04:23 05:12 WBC (4.0-10.5) x10^3/uL RBC (4.1-5.4) x10^6/uL Hgb (12.0-16.0) g/dL Hct (35-47) % MCV (78-100) fL MCH (26-32) pg MCHC (32-36) g/dL RDW (11.5-14.0) % Plt Count (150-450) x10^3/uL MPV (7.5-11.0) fL Gran % (36.0-66.0) % Immature Gran % (Auto) (0.00-0.4) % Nucleat RBC Rel Count (0.00-0.1) % Eos # (Auto) (0-0.5) x10^3/uL Immature Gran # (Auto) (0.00-0.03) x10^3u/L Absolute Lymphs (auto) (1.0-4.6) x10^3/uL Absolute Monos (auto) (0.0-1.3) x10^3/uL Absolute Nucleated RBC (0.00-0.01) x10^3u/L Lymphocytes % (24.0-44.0) % Monocytes % (0.0-12.0) % Eosinophils % (0.00-5.0) % Basophils % (0.0-0.4) % Absolute Granulocytes (1.4-6.9) x10^3/uL Basophils # (0-0.4) x10^3/uL Sodium (137-145) mmol/L Potassium (3.5-5.1) mmol/L Chloride (98-107) mmol/L Carbon Dioxide (22-30) mmol/L Anion Gap (5-15) MEQ/L BUN (7-17) mg/dL Creatinine (0.52-1.04) mg/dL Estimated GFR ML/MIN Glucose (74-106) mg/dL Calcium (8.4-10.2) mg/dL Total Bilirubin (0.2-1.3) mg/dL AST (14-36) U/L ALT (0-35) U/L Alkaline Phosphatase (38-126) U/L Troponin I < 0.012 < 0.012 (0.000-0.034) ng/mL Serum Total Protein (6.3-8.2) g/dL Albumin (3.5-5.0) g/dL Urinalys Dipstick Clnc MAIN LAB Urine Color YELLOW (YELLOW) Urine Appearance CLEAR (CLEAR) Urine pH 6.0 (5-6) Ur Specific Ama 1.020 (1.005-1.025) POC Urine Protein Conf NEGATIVE (Negative) Urine Ketones NEGATIVE (NEGATIVE) Urine Nitrite NEGATIVE (NEGATIVE) Urine Bilirubin NEGATIVE (NEGATIVE) Urine Urobilinogen 0.2 (0-1) mg/dL Urine Leukocytes NEGATIVE (NEGATIVE) Urine WBC (Auto) 3-5 (0-5) /HPF Urine RBC (Auto) NONE (0-2) /HPF U Hyaline Cast (Auto) 0-2 (0-2) /LPF U Epithel Cells (Auto) RARE (FEW) /HPF Urine Bacteria (Auto) RARE (NEGATIVE) /HPF Urine RBC NEGATIVE (0-5) Sammy/ul Urine Mucus (Auto) SLIGHT (NEGATIVE) /HPF Ur Culture Indicated? NO Urine Glucose NEGATIVE (NEGATIVE) mg/dL Influenza Type A Ag (NEGATIVE) Influenza Type B Ag (NEGATIVE) RSV (PCR) (Negative) SARS-CoV-2 (PCR) (NEGATIVE) 01/12/22 01/12/22 01/12/22 Range/Units 07:30 10:00 12:59 WBC (4.0-10.5) x10^3/uL RBC (4.1-5.4) x10^6/uL Hgb (12.0-16.0) g/dL Hct (35-47) % MCV (78-100) fL MCH (26-32) pg MCHC (32-36) g/dL RDW (11.5-14.0) % Plt Count (150-450) x10^3/uL MPV (7.5-11.0) fL Gran % (36.0-66.0) % Immature Gran % (Auto) (0.00-0.4) % Nucleat RBC Rel Count (0.00-0.1) % Eos # (Auto) (0-0.5) x10^3/uL Immature Gran # (Auto) (0.00-0.03) x10^3u/L Absolute Lymphs (auto) (1.0-4.6) x10^3/uL Absolute Monos (auto) (0.0-1.3) x10^3/uL Absolute Nucleated RBC (0.00-0.01) x10^3u/L Lymphocytes % (24.0-44.0) % Monocytes % (0.0-12.0) % Eosinophils % (0.00-5.0) % Basophils % (0.0-0.4) % Absolute Granulocytes (1.4-6.9) x10^3/uL Basophils # (0-0.4) x10^3/uL Sodium (137-145) mmol/L Potassium (3.5-5.1) mmol/L Chloride (98-107) mmol/L Carbon Dioxide (22-30) mmol/L Anion Gap (5-15) MEQ/L BUN (7-17) mg/dL Creatinine (0.52-1.04) mg/dL Estimated GFR ML/MIN Glucose (74-106) mg/dL Calcium (8.4-10.2) mg/dL Total Bilirubin (0.2-1.3) mg/dL AST (14-36) U/L ALT (0-35) U/L Alkaline Phosphatase (38-126) U/L Troponin I < 0.012 < 0.012 < 0.012 (0.000-0.034) ng/mL Serum Total Protein (6.3-8.2) g/dL Albumin (3.5-5.0) g/dL Urinalys Dipstick Clnc Urine Color (YELLOW) Urine Appearance (CLEAR) Urine pH (5-6) Ur Specific Ama (1.005-1.025) POC Urine Protein Conf (Negative) Urine Ketones (NEGATIVE) Urine Nitrite (NEGATIVE) Urine Bilirubin (NEGATIVE) Urine Urobilinogen (0-1) mg/dL Urine Leukocytes (NEGATIVE) Urine WBC (Auto) (0-5) /HPF Urine RBC (Auto) (0-2) /HPF U Hyaline Cast (Auto) (0-2) /LPF U Epithel Cells (Auto) (FEW) /HPF Urine Bacteria (Auto) (NEGATIVE) /HPF Urine RBC (0-5) Sammy/ul Urine Mucus (Auto) (NEGATIVE) /HPF Ur Culture Indicated? Urine Glucose (NEGATIVE) mg/dL Influenza Type A Ag (NEGATIVE) Influenza Type B Ag (NEGATIVE) RSV (PCR) (Negative) SARS-CoV-2 (PCR) (NEGATIVE) - Radiology Exams Ordered Rad Exams-Entire Visit: Radiology Procedures Category Date Time Status CERVICAL SPINE WO CONTRAST [CT] Stat Exams 01/12/22 01:25 Completed HEAD WITHOUT CONTRAST [CT] Stat Exams 01/12/22 01:25 Completed HIP UNI (2V) INCL PEL IF DONE Stat Exams 01/12/22 03:31 Completed - Procedures and Test Procedures and Tests throughout Hospitalization: Therapy Orders & Screens 01/12/22 05:14 OT Screen per Nursing Assess ONCE Comment: Protocol Order Physician Instructions: Greater than 3 points order OT Admission Screening Reason For Exam: Triggered on Admission Diagnosis: syncope Open Wound/Cellutlitis/Pressure Ulcers: Yes Acute Fx/ORIF/Change in wt bearing status: No Severe MUSCULOSKELETAL pain: No ADL Dysfunction: No Acute CVA w/Hemiparesis/Hemiplegia: No Decreased Functional Mobility/Strength: No Sprain/Strain: No Acute Post-op Mobility Dysfunction: No Total Points: 5 PT Screen per Nursing Assess ONCE Comment: Protocol Order Physician Instructions: Greater than 3 points order PT Admission Screenin Reason For Exam: Triggered on Admission Diagnosis: syncope Open Wound/Cellutlitis/Pressure Ulcers: Yes Acute Fx/ORIF/Change in wt bearing status: No Severe MUSCULOSKELETAL pain: No ADL Dysfunction: No Acute CVA w/Hemiparesis/Hemiplegia: No Decreased Functional Mobility/Strength: No Sprain/Strain: No Acute Post-op Mobility Dysfunction: No Total Points: 5 Smoking Cessation Education ONCE Comment: Diagnosis: syncope Smoking Status: Current every day smoker How long have you smoked: 50yrs Have you smoked in the past 12 months: Yes Approximately how many cigarettes per day: 1 1/2 PACKS Do you dip or chew tobacco: No 01/12/22 09:30 EKG ROUTINE Comment: Diagnosis: syncope 01/13/22 05:00 EKG ROUTINE Comment: Diagnosis: syncope 01/13/22 07:00 Respiratory Therapy Assessment DAILY Comment: Diagnosis: syncope 01/14/22 05:00 EKG ROUTINE Comment: Diagnosis: syncope 01/15/22 05:00 EKG ROUTINE Comment: Diagnosis: syncope - Discharge Discharge Date: 01/12/22 Disposition: Home, Self-Care Condition: Stable Prescriptions: Continue Celecoxib [Celebrex] 200 mg PO DAILY Simvastatin 40 mg [Zocor 40 mg] 40 mg PO HS Levothyroxine Sodium 50 Mcg [Synthroid 50 Mcg] 50 mcg PO DAILY Imipramine HCl 50 mg PO QHS Methotrexate Sodium 2.5 mg [Trexall 2.5 mg] 15 mg PO WEEKLY Oxybutynin Chloride 5 mg PO BID Losartan Potassium [Cozaar] 25 mg PO DAILY Omeprazole 40 mg PO DAILY Albuterol 2.5 mg/3 ml Neb [Proventil 2.5 mg/3 ml Neb] 1 neb IH Q4-6HPRN PRN PRN Reason: SOB/ wheezing Fluticasone/Vilanterol [Breo Ellipta 100-25 Mcg INH] 1 each IH DAILY Folic Acid 1 mg [Folate 1 mg] 1 mg PO DAILY Instructions: Preventing Falls in the Older Adult, Laceration Repair With Vonda (DC) Follow up with: SARAH MATT [Primary Care Provider] - 01/25/22 10:30 am Forms: Discharge Instructions
[2022-01-13 07:15] VITALS: O2SAT 93
== END 2022-01-12 14:14 | disposition home or self-care (01) ==
LOC: ED 00:54 → MED SURG 04:35
PROVIDERS: ADMIT General Practice; ATTEND General Practice
DX: R55 Syncope and collapse (principal); G93.0 Cerebral cysts; E23.6 Other disorders of pituitary gland; W18.30XA Fall on same level, unspecified, initial encounter; S01.91XA Laceration without foreign body of unspecified part of head, initial encounter; I10 Essential (primary) hypertension; E03.9 Hypothyroidism, unspecified; Z72.0 Tobacco use; Z79.899 Other long term (current) drug therapy; Z20.828 Contact with and (suspected) exposure to other viral communicable diseases
CPT/HCPCS: 0241U; 36000; 36415; 70450; 72125; 73502; 80053; 81015; 84484; 85025; 93005; 93041; 94640; 94760; 96374; 93268; 99285; J2270; J7609; A9270-GY; G0378

== ENCOUNTER 2022-02-01 23:06 | Emergency (ER) | payer MEDICARE, OTHER ==
--- NOTE | 2022-02-01 23:44 | ERPHSYRPT ---
- History of Present Illness Time Seen by Provider: 02/01/22 23:20 Source: patient Exam Limitations: no limitations Patient Subjective Stated Complaint: pt states "My doctor told me that I needed to clean my gut out so I have been taking laxatives and have been having bowel movements but it feels like something is stuck up there." Triage Nursing Assessment: Pt presents to ED via [facility] ambulance, pt alert and oriented x3, skin pwd, vitals wnl, pt c/o rectal pain for x2 days and R hip pain since 01/12/22 d/t fall, pt took laxatives yesterday, pt last BM was this morning, pt tried to go again tonight and couldn't go and felt like someth ing is "stuck up there" Physician History: Patient is a 76-year-old female presents to our ED for evaluation of rectal discomfort. Patient feels something is in her rectum possible impaction. Patient has been taking laxatives per her primary care doctor. Patient has been having regular bowel movements. Patient had a bowel movement this morning. Patient felt as though she needed to have a bowel movement this evening but cannot produce stool. No abdominal pain. No trauma. No fever. Patient suspects that she has fecal impaction. No urinary complaints. Patient otherwise feels well. She voices no other complaints or concerns at this time. Timing/Duration: today Severity: moderate Modifying Factors: Improves With: nothing Associated Symptoms: denies symptoms Allergies/Adverse Reactions: DISSOLVABLE SUTURES Allergy (Severe, Uncoded 01/12/22 01:13) Home Medications: Celecoxib [Celebrex] 200 mg PO DAILY 10/15/13 [History] Levothyroxine Sodium 50 Mcg [Synthroid 50 Mcg] 50 mcg PO DAILY 10/15/13 [History] Simvastatin 40 mg [Zocor 40 mg] 40 mg PO HS 10/15/13 [History] Imipramine HCl 50 mg PO QHS 12/11/17 [History] Methotrexate Sodium 2.5 mg [Trexall 2.5 mg] 15 mg PO WEEKLY 12/11/17 [H istory] Losartan Potassium [Cozaar] 25 mg PO DAILY 03/17/21 [History] Omeprazole 40 mg PO DAILY 03/17/21 [History] Albuterol 2.5 mg/3 ml Neb [Proventil 2.5 mg/3 ml Neb] 1 neb IH Q4-6HPRN PRN 03/18/21 [History] Fluticasone/Vilanterol [Breo Ellipta 100-25 Mcg INH] 1 each IH DAILY 01/12/22 [History] Folic Acid 1 mg [Folate 1 mg] 1 mg PO DAILY 01/12/22 [History] Hx Tetanus, Diphtheria Vaccination/Date Given: Yes Hx Influenza Vaccination/Date Given: Yes Hx Pneumococcal Vaccination/Date Given: Yes Immunizations Up to Date: Yes Travel Risk - International Travel Have you traveled outside of the country in past 3 weeks: No - Coronavirus Screening Are you exhibiting any of the following symptoms?: No Close contact with a COVID-19 positive Pt in past 14-21 Days: No - Vaccine Status Have you recieved a Covid-19 vaccination: Yes 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: [employer] - Vaccination Dates Date of 2cond Vaccination (if applicable): unknown - Review of Systems Constitutional: No Symptoms, No Fever, No Chills Eyes: No Symptoms Ears, Nose, & Throat: No Symptoms Respiratory: No Symptoms, No Cough, No Dyspnea Cardiac: No Symptoms, No Chest Pain, No Edema, No Syncope Abdominal/Gastrointestinal: No Symptoms, No Abdominal Pain, No Nausea, No Vomiting, No Diarrhea Genitourinary Symptoms: No Symptoms, No Dysuria Musculoskeletal: No Symptoms, No Back Pain, No Neck Pain Skin: No Symptoms, No Rash Neurological: No Symptoms, No Dizziness, No Focal Weakness, No Sensory Changes Psychological: No Symptoms Endocrine: No Symptoms Hematologic/Lymphatic: No Symptoms Immunological/Allergic: No Symptoms All Other Systems: Reviewed and Negative - Past Medical History Pertinent Past Medical History: Yes Neurological History: No Pertinent History ENT History: No Pertinent History Cardiac History: No Pertinent History Respiratory History: COPD Endocrine Medical History: Hypothyroidism Musculoskeletal History: Arthritis GI Medical History: GERD History: No Pertinent History Psycho-Social History: Anxiety Female Reproductive Disorders: Other Other Medical History: Son is currently dealing with brain tumor and is going to have surgery for shunt and pt has stress as a result. - Past Surgical History Past Surgical History: Yes Neuro Surgical History: No Pertinent History Cardiac: No Pertinent History Respiratory: No Pertinent History Gastrointestinal: Appendectomy Genitourinary: No Pertinent History Musculoskeletal: Orthopedic Surgery Female Surgical History: Hysterectomy, Tubal Ligation Other Surgical History: back surgery x 3{ stenosis},left foot nerve release,left hand trigger finger release,A&P repair-colporrhaphy,childbirth x two - Social History Smoking Status: Current every day smoker How long have you smoked: 40 Exposure to second hand smoke: Yes Drug Use: none Patient Lives Alone: Yes - Nursing Vital Signs Nursing Vital Signs: Initial Vital Signs Temperature 97.6 F 02/01/22 23:11 Pulse Rate 89 02/01/22 23:11 Respiratory Rate 16 02/01/22 23:11 Blood Pressure 110/65 02/01/22 23:11 O2 Sat by Pulse Oximetry 100 02/01/22 23:11 Pain Scale Pain Intensity 7 - Physical Exam General Appearance: no apparent distress, alert Eye Exam: PERRL/EOMI, eyes nml inspection Ears, Nose, Throat Exam: normal ENT inspection, TMs normal, pharynx normal, moist mucous membranes Neck Exam: normal inspection, non-tender, supple, full range of motion Respiratory Exam: normal breath sounds, lungs clear, No respiratory distress Cardiovascular Exam: regular rate/rhythm, normal heart sounds, normal peripheral pulses Gastrointestinal/Abdomen Exam: soft, normal bowel sounds, No tenderness, No mass Back Exam: normal inspection, normal range of motion, No CVA tenderness, No vertebral tenderness Extremity Exam: normal inspection, normal range of motion, pelvis stable Neurologic Exam: alert, oriented x 3, cooperative, normal mood/affect, nml cerebellar function, nml station & gait, sensation nml, No motor deficits Skin Exam: normal color, warm, dry, No rash Lymphatic Exam: No adenopathy SpO2 Interpretation: normal SpO2: 100 O2 Delivery: Room Air - Course Nursing assessment & vital signs reviewed: Yes - CT Exams Abdomen/Pelvis CT Interpretation: Tele-radiologist Report (No fracture or dislocation emphysematous changes probable vascular calcifications seen in the renal hilum bilaterally, constipation, lumbar spine surgical hardware, right hip arthroplasty changes) Ordered Tests: Active Orders 24 hr Category Date Time Status ABDOMEN AND PELVIS W/0 CONTRAS [CT] Stat Exams 02/01/22 23:23 Taken Medication Summary Discontinued Medications Generic Name Dose Route Start Last Admin Trade Name Freq PRN Reason Stop Dose Admin Morphine Sulfate 2 mg 02/02/22 01:28 02/02/22 01:35 Morphine Sulfate 2 Mg/Ml Inj IM 02/02/22 01:29 2 mg STAT ONE Administration Morphine Sulfate Confirm 02/02/22 01:34 Morphine Sulfate 2 Mg/Ml Inj Administered 02/02/22 01:35 Dose 2 mg .ROUTE .STK-MED ONE - Progress Progress: improved Progress Note: We attempted to obtain a urinalysis but patient states that she did not want to provide 1. Patient recently followed up with her urologist and urinalysis was checked. Patient does not believe a another urinalysis is indicated at this time. CT scan shows constipation. No other significant abnormalities observed. Physical exam does not reveal a rectal prolapse. Digital rectal exam was also performed. No significant stool was found in the vault. Patient that she is ready for discharge. She requested pain medication prior to discharge. Patient received 2 mg of morphine IM. Vital stable. Patient agrees to follow-up with her primary care doctor within 48 hours for evaluation. Portions of this note were created with voice recognition technology. There may be grammatical, spelling, punctuation or sound alike errors 02/02/22 01:[address] Candace Curtis who feels patient is appropriate for discharge. Eventually will see patient in their office as early as tomorrow. 02/02/22 02:41 Counseled pt/family regarding: diagnosis, need for follow-up, rad results - Departure Departure Disposition: Home Clinical Impression: Constipation Condition: Stable Critical Care Time: No Referrals: SARAH MATT [Primary Care Provider] - Follow up/PCP as directed CANDACE CURTIS [ACTIVE STAFF] - Follow up/PCP as directed Additional Instructions: Please call Dr. Curtis's office of general surgery in the morning to schedule follow-up. The number is area code [phone] Discharge/Care Plan MICHELE GARZA was seen on 02/02/22 in the Emergency Room. The patient was counseled regarding Diagnosis,Lab results, Imaging studies, need for follow up and when to return to the Emergency Room. Prescriptions given: Discharge Note I have spoken with the patient and/or caregivers. I have explained the patient's condition, diagnosis and treatment plan based on the information available to me at this time. I have answered the patient's and/or caregiver's questions and addressed any concerns. The patient and/or caregivers have as good understanding of the patient's diagnosis, condition and treatment plan as can be expected at this point. The vital signs have been stable. The patient's condition is stable and appropriate for discharge from the emergency department. The patient will pursue further outpatient evaluation with the primary care physician or other designated or consulting physician as outlined in the discharge instructions. The patient and/or caregivers are agreeable to this plan of care and follow-up instructions have been explained in detail. The patient and/or caregivers have received these instruction. The patient/and or caregivers are aware that any significant change in condition or worsening of symptoms should prompt an immediate return to this or the closest emergency department or call 911.
[2022-02-02 01:20] VITALS: O2SAT 100
[2022-02-02] MEDS ORDERED: MORPHINE SULFATE 2 MG INJ IM ONE (01:28)
[2022-02-02] MEDS ORDERED: MORPHINE SULFATE 2 MG INJ ONE (01:34)
[2022-02-02 03:39] VITALS: BP 104/58; PULSE 79
--- NOTE | 2022-02-02 09:06 | XRAY ---
Indication: Pelvic and rectal pain. Constipation. Obstruction. Multiple contiguous images obtained through the abdomen and pelvis without contrast. Comparison: March 17, 2021. Lung bases demonstrates minimal right base subsegmental atelectasis/scarring. No infiltrate or effusion. Heart is not enlarged. Noncontrasted stomach and bowel loops appear nonobstructed. There is now mild/moderate diffuse scattered colonic fecal debris throughout. Appendectomy and hysterectomy reported. No free fluid/air. Stable right renal cysts. Remaining liver, gallbladder, pancreas, spleen, adrenal glands, kidneys, ureters, and bladder are unremarkable for noncontrast exam. Again mild scattered aortoiliac calcifications including both intrarenal arteries. Osseous structures again demonstrates osteopenia, mild double curvature thoracolumbar scoliosis, mild/moderate multilevel thoracolumbar degenerative spondylosis, minimal grade 1 L3/L4 spondylolisthesis, L3-L4 posterior fusion with intact hardware, right hip arthroplasty with intact bipolar prosthesis, and mild left hip degenerative arthropathy. Impression: 1. New diffuse fecal stasis. 2. Again chronic findings including right renal cysts, arteriosclerotic disease, and chronic bony findings. Comment: Preliminary interpretation made by C. No critical discrepancy.
== END 2022-02-02 03:39 | disposition home or self-care (01) ==
LOC: ED 23:06
DX: K59.00 Constipation, unspecified (principal); J44.9 Chronic obstructive pulmonary disease, unspecified; Z72.0 Tobacco use; Z79.899 Other long term (current) drug therapy
CPT/HCPCS: 74176; 96372; 99284; J2270

== ENCOUNTER 2022-03-21 17:34 | Emergency (ER) | payer MEDICARE, OTHER ==
--- NOTE | 2022-03-21 17:46 | ERPHSYRPT ---
- History of Present Illness Time Seen by Provider: 03/21/22 17:46 Historian: patient Exam Limitations: no limitations Physician History: This is a 76-year-old white female who presents with abdominal pain and distention. A recent CAT scan of the abdomen pelvis showed diffuse fecal stasis. Patient has had a hysterectomy in the past as well as 3 back surgeries and a bilateral tubal ligation. Patient was scheduled to have a colonoscopy tomorrow and in the last 2 days she has had a bowel prep which included Dulcolax pills yesterday and today followed by a mixture of Gatorade and MiraLAX today. She did consume the MiraLAX and Gatorade but then began having abdominal pain that is aching and cramping and she feels as though she is distended. Patient has a history of hypothyroidism, arthritis, gastroesophageal reflux disease, hyperlipidemia, COPD and anxiety issues. Patient is a current daily smoker of cigarettes. Patient states that the bowel prep has not cleared her bowels out. She is passing small balls of stool. Since she drank the MiraLAX and Gatorade combination, she states that she has had urinary retention and constipation. Timing/Duration: today Quality: aching, cramping, fullness Abdominal Pain Onset Location: generalized abdomen Pain Radiation: no radiation Severity of Pain-Max: moderate Severity of Pain-Current: moderate Allergies/Adverse Reactions: DISSOLVABLE SUTURES Adverse Reaction (Severe, Uncoded 03/21/22 12:03) Home Medications: Celecoxib [Celebrex] 200 mg PO DAILY 10/15/13 [History] Levothyroxine Sodium 50 Mcg [Synthroid 50 Mcg] 50 mcg PO DAILY 10/15/13 [History] Simvastatin 40 mg [Zocor 40 mg] 40 mg PO HS 10/15/13 [History] Imipramine HCl 3 tablet PO QHS 12/11/17 [History] Methotrexate Sodium 2.5 mg [Trexall 2.5 mg] 6 tab PO WEEKLY 12/11/17 [History] Losartan Potassium [Cozaar] 25 mg PO DAILY 03/17/21 [History] Omeprazole 40 mg PO DAILY 03/17/21 [History] Albuterol 2.5 mg/3 ml Neb [Proventil 2.5 mg/3 ml Neb] 1 neb IH Q4-6HPRN PRN 03/18/21 [History] Fluticasone/Vilanterol [Breo Ellipta 100-25 Mcg INH] 1 each IH DAILY 01/12/22 [History] Fluticasone/Vilanterol [Breo Ellipta 100-25 Mcg INH] 1 puff IH DAILY 03/21/22 [History] Metaxalone 800 mg PO BID 03/21/22 [History] Methotrexate Sodium 2.5 mg [Trexall 2.5 mg] 6 tablet PO WEEKLY 03/21/22 [History] Solifenacin Succinate 10 mg PO DAILY 03/21/22 [History] Hx Tetanus, Diphtheria Vaccination/Date Given: Yes Hx Influenza Vaccination/Date Given: Yes Hx Pneumococcal Vaccination/Date Given: Yes Travel Risk - International Travel Have you traveled outside of the country in past 3 weeks: No - Coronavirus Screening Are you exhibiting any of the following symptoms?: No Close contact with a COVID-19 positive Pt in past 14-21 Days: No - Vaccine Status Have you recieved a Covid-19 vaccination: Yes [employer] Worker: [employer] - Vaccination Dates Date of 2cond Vaccination (if applicable): unknown - Review of Systems Constitutional: No Symptoms Eyes: No Symptoms, Photophobia Ears, Nose, & Throat: No Symptoms Respiratory: No Symptoms Cardiac: No Symptoms Abdominal/Gastrointestinal: Abdominal Pain, Constipation Genitourinary Symptoms: Urinary Retention Musculoskeletal: No Symptoms Skin: No Symptoms Neurological: No Symptoms Psychological: Anxiety Endocrine: No Symptoms Hematologic/Lymphatic: No Symptoms Immunological/Allergic: No Symptoms All Other Systems: Reviewed and Negative - Past Medical History Pertinent Past Medical History: Yes Neurological History: No Pertinent History ENT History: No Pertinent History Cardiac History: No Pertinent History Respiratory History: COPD Endocrine Medical History: Hypothyroidism Musculoskeletal History: Arthritis GI Medical History: GERD History: No Pertinent History Psycho-Social History: Anxiety Female Reproductive Disorders: Other Other Medical History: Son is currently dealing with brain tumor and is going to have surgery for shunt and pt has stress as a result. - Past Surgical History Past Surgical History: Yes Neuro Surgical History: No Pertinent History Cardiac: No Pertinent History Respiratory: No Pertinent History Gastrointestinal: Appendectomy Genitourinary: No Pertinent History Musculoskeletal: Orthopedic Surgery Female Surgical History: Hysterectomy, Tubal Ligation Other Surgical History: back surgery x 3{ stenosis},left foot nerve release,left hand trigger finger release,A&P repair-colporrhaphy,childbirth x two - Social History Smoking Status: Current every day smoker How long have you smoked: 40 Exposure to second hand smoke: Yes Drug Use: none Patient Lives Alone: Yes - Nursing Vital Signs Nursing Vital Signs: Initial Vital Signs Temperature 97.2 F 03/21/22 17:35 Pulse Rate 99 H 03/21/22 17:35 Respiratory Rate 22 03/21/22 17:35 Blood Pressure 129/80 03/21/22 17:35 O2 Sat by Pulse Oximetry 99 03/21/22 17:35 Pain Scale Pain Intensity 10 - Physical Exam General Appearance: mild distress, alert, anxiety, thin Eye Exam: PERRL/EOMI, eyes nml inspection Ears, Nose, Throat Exam: normal ENT inspection, moist mucous membranes Neck Exam: normal inspection, non-tender, supple, full range of motion Respiratory Exam: normal breath sounds, lungs clear, airway intact, No chest tenderness, No respiratory distress Cardiovascular Exam: regular rate/rhythm, normal heart sounds, normal peripheral pulses Gastrointestinal/Abdomen Exam: soft, tenderness (Diffuse), distention, guarding (Diffuse), other (Diffuse hypoactive bowel sounds) Pelvic Exam: not done Rectal Exam: not done Back Exam: normal inspection, normal range of motion, No CVA tenderness, No vertebral tenderness Extremity Exam: normal inspection, normal range of motion, pelvis stable Neurologic Exam: alert, oriented x 3, cooperative, floor inspector II-XII nml as tested, normal mood/affect, nml cerebellar function, nml station & gait, sensation nml Skin Exam: normal color, warm, dry Lymphatic Exam: No adenopathy SpO2 Interpretation: normal O2 Delivery: Room Air - Course Nursing assessment & vital signs reviewed: Yes Ordered Tests: Active Orders 24 hr Category Date Time Status Eagle [Catheter-[place] Eagle] STAT Care 03/21/22 21:00 Active IV Insertion STAT Care 03/21/22 18:02 Active ABDOMEN AND PELVIS W CONTRAST [CT] Stat Exams 03/21/22 18:01 Taken AMYLASE Stat Lab 03/21/22 17:50 Completed CBC W DIFF Stat Lab 03/21/22 17:50 Completed CMP Stat Lab 03/21/22 17:50 Completed LIPASE Stat Lab 03/21/22 17:50 Completed Lactic Acid Stat Lab 03/21/22 18:01 Completed UA W/RFX CULTURE Stat Lab 03/21/22 21:00 Completed Transfer Order Routine Transfer 03/21/22 Ordered Medication Summary Discontinued Medications Generic Name Dose Route Start Last Admin Trade Name [place] PRN Reason Stop Dose Admin Hydromorphone HCl 0.5 mg 03/21/22 18:02 03/21/22 18:10 Hydromorphone 1 Mg/1ml Inj 1 Mg/Ml Syringe IV 03/21/22 18:03 0.5 mg STAT ONE Administration Hydromorphone HCl Confirm 03/21/22 18:08 Hydromorphone 1 Mg/1ml Inj 1 Mg/Ml Syringe Administered 03/21/22 18:09 Dose 1 mg .ROUTE .STK-MED ONE Sodium Chloride 1,000 mls @ 999 mls/hr 03/21/22 18:02 03/21/22 19:26 Sodium Chloride 0.9% 1000 Ml IV 03/21/22 19:02 Infused .Q1H1M STA Infusion Sodium Chloride Confirm 03/21/22 18:08 Sodium Chloride 0.9% 1000 Ml Administered 03/21/22 18:09 Dose 1,000 mls @ ud .ROUTE .STK-MED ONE Ondansetron HCl 4 mg 03/21/22 18:02 03/21/22 18:10 Ondansetron Hcl 4 Mg/2 Ml Vial IV 03/21/22 18:03 4 mg STAT ONE Administration Ondansetron HCl Confirm 03/21/22 18:07 Ondansetron Hcl 4 Mg/2 Ml Vial Administered 03/21/22 18:08 Dose 4 mg .ROUTE .STK-MED ONE Lab/Rad Data: Laboratory Result Diagrams 03/21/22 17:50 03/21/22 17:50 Laboratory Results 03/21/22 03/21/22 03/21/22 Range/Units 21:00 18:01 17:50 WBC (4.0-10.5) x10^3/uL RBC (4.1-5.4) x10^6/uL Hgb (12.0-16.0) g/dL Hct (35-47) % MCV (78-100) fL MCH (26-32) pg MCHC (32-36) g/dL RDW (11.5-14.0) % Plt Count (150-450) x10^3/uL MPV (7.5-11.0) fL Gran % (36.0-66.0) % Immature Gran % (Auto) (0.00-0.4) % Nucleat RBC Rel Count (0.00-0.1) % Eos # (Auto) (0-0.5) x10^3/uL Immature Gran # (Auto) (0.00-0.03) x10^3u/L Absolute Lymphs (auto) (1.0-4.6) x10^3/uL Absolute Monos (auto) (0.0-1.3) x10^3/uL Absolute Nucleated RBC (0.00-0.01) x10^3u/L Lymphocytes % (24.0-44.0) % Monocytes % (0.0-12.0) % Eosinophils % (0.00-5.0) % Basophils % (0.0-0.4) % Absolute Granulocytes (1.4-6.9) x10^3/uL Basophils # (0-0.4) x10^3/uL Sodium 129 L (137-145) mmol/L Potassium 4.2 (3.5-5.1) mmol/L Chloride 98 (98-107) mmol/L Carbon Dioxide 20 L (22-30) mmol/L Anion Gap 15.4 H (5-15) MEQ/L BUN 15 (7-17) mg/dL Creatinine 0.71 (0.52-1.04) mg/dL Estimated GFR > 60.0 ML/MIN Glucose 97 (74-106) mg/dL Lactic Acid 1.5 (0.4-2.0) Calcium 9.2 (8.4-10.2) mg/dL Total Bilirubin 0.70 (0.2-1.3) mg/dL AST 30 (14-36) U/L ALT 14 (0-35) U/L Alkaline Phosphatase 104 (38-126) U/L Serum Total Protein 7.0 (6.3-8.2) g/dL Albumin 4.1 (3.5-5.0) g/dL Amylase 59 (30-110) U/L Lipase 36 (23-300) U/L Urinalys Dipstick Clnc MAIN LAB Urine Color YELLOW (YELLOW) Urine Appearance CLEAR (CLEAR) Urine pH 6.0 (5-6) Ur Specific [place] 1.010 (1.005-1.025) POC Urine Protein Conf NEGATIVE (Negative) Urine Ketones NEGATIVE (NEGATIVE) Urine Nitrite NEGATIVE (NEGATIVE) Urine Bilirubin NEGATIVE (NEGATIVE) Urine Urobilinogen 0.2 (0-1) mg/dL Urine Leukocytes NEGATIVE (NEGATIVE) Urine WBC (Auto) NONE (0-5) /HPF Urine RBC (Auto) NONE (0-2) /HPF U Epithel Cells (Auto) NONE (FEW) /HPF Urine Bacteria (Auto) NONE (NEGATIVE) /HPF Urine RBC NEGATIVE (0-5) Sammy/ul Ur Culture Indicated? NO Urine Glucose NEGATIVE (NEGATIVE) mg/dL 03/21/22 Range/Units 17:50 WBC 8.2 (4.0-10.5) x10^3/uL RBC 3.84 L (4.1-5.4) x10^6/uL Hgb 13.3 (12.0-16.0) g/dL Hct 38.6 (35-47) % MCV 100.5 H (78-100) fL MCH 34.6 H (26-32) pg MCHC 34.5 (32-36) g/dL RDW 14.5 H (11.5-14.0) % Plt Count 357 (150-450) x10^3/uL MPV 10.2 (7.5-11.0) fL Gran % 73.8 H (36.0-66.0) % Immature Gran % (Auto) 0.4 (0.00-0.4) % Nucleat RBC Rel Count 0.0 (0.00-0.1) % Eos # (Auto) 0.02 (0-0.5) x10^3/uL Immature Gran # (Auto) 0.03 (0.00-0.03) x10^3u/L Absolute Lymphs (auto) 1.43 (1.0-4.6) x10^3/uL Absolute Monos (auto) 0.64 (0.0-1.3) x10^3/uL Absolute Nucleated RBC 0.00 (0.00-0.01) x10^3u/L Lymphocytes % 17.4 L (24.0-44.0) % Monocytes % 7.8 (0.0-12.0) % Eosinophils % 0.2 (0.00-5.0) % Basophils % 0.4 (0.0-0.4) % Absolute Granulocytes 6.08 (1.4-6.9) x10^3/uL Basophils # 0.03 (0-0.4) x10^3/uL Sodium (137-145) mmol/L Potassium (3.5-5.1) mmol/L Chloride (98-107) mmol/L Carbon Dioxide (22-30) mmol/L Anion Gap (5-15) MEQ/L BUN (7-17) mg/dL Creatinine (0.52-1.04) mg/dL Estimated GFR ML/MIN Glucose (74-106) mg/dL Lactic Acid (0.4-2.0) Calcium (8.4-10.2) mg/dL Total Bilirubin (0.2-1.3) mg/dL AST (14-36) U/L ALT (0-35) U/L Alkaline Phosphatase (38-126) U/L Serum Total Protein (6.3-8.2) g/dL Albumin (3.5-5.0) g/dL Amylase (30-110) U/L Lipase (23-300) U/L Urinalys Dipstick Clnc Urine Color (YELLOW) Urine Appearance (CLEAR) Urine pH (5-6) Ur Specific [place] (1.005-1.025) POC Urine Protein Conf (Negative) Urine Ketones (NEGATIVE) Urine Nitrite (NEGATIVE) Urine Bilirubin (NEGATIVE) Urine Urobilinogen (0-1) mg/dL Urine Leukocytes (NEGATIVE) Urine WBC (Auto) (0-5) /HPF Urine RBC (Auto) (0-2) /HPF U Epithel Cells (Auto) (FEW) /HPF Urine Bacteria (Auto) (NEGATIVE) /HPF Urine RBC (0-5) Sammy/ul Ur Culture Indicated? Urine Glucose (NEGATIVE) mg/dL - Progress Progress: improved, re-examined Progress Note: 03/21/22 21:39 CAT scan of the abdomen pelvis with oral contrast shows markedly distended stomach and large urinary bladder. Bladder obstruction versus neurogenic bladder. There is small and large bowel loops with moderate distention and fluid throughout with fluid leveling. The patient was not given barium but was given Gastrografin. This should not preclude the patient from undergoing a colonoscopy tomorrow unless the surgeon decides otherwise. Medical decision making: This patient states that her pain is much better after placement of a Eagle catheter. 1400 mL of urine was removed from the bladder. She also is noting that she is having increased number of bowel movements since the urinary bladder has been decompressed. 03/21/22 22:15 Medical decision making: I spoke with Dr. Rene. The patient does not have transportation home. She has urinary retention with bladder outlet obstruction and also has ileus versus partial small bowel obstruction. Her symptoms are improving. We will place her in observation, hydrate her provide her with antiemetics and transport her to her colonoscopy here at the hospital at 530 tomorrow morning Counseled pt/family regarding: lab results, diagnosis, need for follow-up, rad results - Departure Departure Disposition: Observation Clinical Impression: Urinary retention, Ileus Condition: Stable Critical Care Time: No Referrals: SARAH MATT [NON-STAFF PHY W/O PRIVILEGES] - Follow up/PCP as directed
[2022-03-21] MEDS ORDERED: Hydromorphone 1 mg/ml Injection IV ONE (18:02)
[2022-03-21] MEDS ORDERED: Sodium Chloride 0.9% 1000 ML 1,000 ML IV STA (18:02)
[2022-03-21] MEDS ORDERED: Zofran 4 MG/2 ML VIAL IV ONE (18:02)
[2022-03-21] MEDS ORDERED: Zofran 4 MG/2 ML VIAL ONE (18:07)
[2022-03-21] MEDS ORDERED: Sodium Chloride 0.9% 1000 ML 1,000 ML ONE (18:08)
[2022-03-21] MEDS ORDERED: Hydromorphone 1 mg/ml Injection ONE (18:08)
[2022-03-21 18:20] LABS: Absolute Neutrophil Ct (ANC) 6.08 x10^3/uL (1.4-6.9); Basophil (Absolute #) 0.03 x10^3/uL (0-0.4); Eosinophil % 0.2 % (0.00-5.0); Eosinophil (Absolute #) 0.02 x10^3/uL (0-0.5); Hematocrit 38.6 % (35-47); Hemoglobin 13.3 g/dL (12.0-16.0); Lymphocyte (Absolute #) 1.43 x10^3/uL (1.0-4.6); Lymphocytes % 17.4 % (24.0-44.0); Mean Cell Volume 100.5 fL (78-100); Mean Corpuscular Hemoglobin 34.6 pg (26-32); Mean Corpuscular Hgb Concent. 34.5 g/dL (32-36); Mean Platelet Volume 10.2 fL (7.5-11.0); Monocyte (Absolute #) 0.64 x10^3/uL (0.0-1.3); Monocytes % 7.8 % (0.0-12.0); Neutrophil % 73.8 % (36.0-66.0); Platelet Count 357 x10^3/uL (150-450); Red Blood Count 3.84 x10^6/uL (4.1-5.4); Red Cell Distribution Width 14.5 % (11.5-14.0); White Blood Count 8.2 x10^3/uL (4.0-10.5)
[2022-03-21 18:43] LABS: ALBUMIN 4.1 g/dL (3.5-5.0); ALKALINE PHOSPHATASE 104 U/L (38-126); AMYLASE 59 U/L (30-110); ANION GAP 15.4 MEQ/L (5-15); BLOOD UREA NITROGEN 15 mg/dL (7-17); CHLORIDE 98 mmol/L (98-107); Calcium 9.2 mg/dL (8.4-10.2); Carbon Dioxide 20 mmol/L (22-30); Creatinine 1 0.71 mg/dL (0.52-1.04); EST GLOMERULAR FILTRATION RATE > 60.0 ML/MIN; Glucose 97 mg/dL (74-106); LIPASE 36 U/L (23-300); Potassium 4.2 mmol/L (3.5-5.1); SGOT/AST 30 U/L (14-36); SGPT/ALT 14 U/L (0-35); SODIUM 129 mmol/L (137-145)
[2022-03-21 19:05] VITALS: O2SAT 98
[2022-03-21 21:06] LABS: Appearance CLEAR (CLEAR)
[2022-03-21 21:07] LABS: Bilirubin NEGATIVE (NEGATIVE); Glucose NEGATIVE (NEGATIVE); Ketones NEGATIVE (NEGATIVE); Nitrite NEGATIVE (NEGATIVE); Protein,Urine Dip NEGATIVE (Negative); RBC NEGATIVE Ery/ul (0-5); Urobilinogen 0.2 mg/dL (0-1)
[2022-03-21 21:08] LABS: Dipstick done @ ? MAIN LAB
[2022-03-21 21:10] LABS: Urine Cultured Indicated? NO
[2022-03-21 22:26] VITALS: PULSE 98
[2022-03-21 22:58] LABS: INFLUENZA A NEGATIVE (NEGATIVE); INFLUENZA B NEGATIVE (NEGATIVE); RESPIRATORY SYNCTIAL VIRUS NEGATIVE (Negative); SARS-CoV-2 Xpert Express NEGATIVE (NEGATIVE)
[2022-03-21 23:18] VITALS: BP 131/79
--- NOTE | 2022-03-22 08:51 | XRAY ---
Indication: Abdomen pain and constipation. Patient drinking bowel prep for colonoscopy tomorrow. Multiple contiguous axial images obtained through the abdomen and pelvis using 80 cc Isovue 370 contrast. Gastrografin contrast also used. Comparison: March 09, 2022 Lung bases again demonstrates minimal fibrosis/scarring and pulmonary emphysema. No infiltrate or effusion. Heart not enlarged. There is again beam artifact from L3-L4 fusion hardware and right hip arthroplasty. Stomach is moderately distended with enteric contrast. Duodenum and jejunal bowel loops are also moderately contrast distended. Remaining small and large bowel loops are also moderately fluid distended throughout with fluid leveling. Findings may represent ingested GoLYTELY bowel prep versus ileus. No free fluid/air. Urinary bladder is now massively distended concerning for outlet obstruction versus neurogenic bladder. Normal visceral enhancement and renal excretion. Stable small right renal cysts, appendectomy, and hysterectomy. Remaining liver, gallbladder, pancreas, spleen, adrenal glands, kidneys, ureters, and bladder are unremarkable. Again mild scattered aortoiliac calcifications. No AAA or pathologic retroperitoneal lymphadenopathy. Osseous structures again demonstrates osteopenia, healing bilateral sacral insufficiency fractures, old angulated sacral fracture, multilevel degenerative spondylosis, grade 1 L3/L4 spondylolisthesis, double curvature scoliosis, and left hip degenerative arthropathy. Impression: 1. New fluid and enteric contrast distended stomach, small bowel, and large bowel loops with fluid leveling favoring ileus. Findings could also represent ingested GoLYTELY bowel prep as clinically reported. No free fluid/air. 2. New massively distended urinary bladder. Rule out outlet obstruction versus neurogenic bladder. 3. Chronic findings including pulmonary emphysema, right renal cysts, arteriosclerotic disease, and chronic bony findings.
== END 2022-03-22 00:21 | disposition home or self-care (01) ==
LOC: ED 17:34
DX: K56.7 Ileus, unspecified (principal); R33.9 Retention of urine, unspecified; R10.84 Generalized abdominal pain; J44.9 Chronic obstructive pulmonary disease, unspecified; Z72.0 Tobacco use; Z79.899 Other long term (current) drug therapy; Z20.828 Contact with and (suspected) exposure to other viral communicable diseases
CPT/HCPCS: 0241U; 36000; 36415; 51702; 74177; 80053; 81015; 82150; 83605; 83690; 85025; 96374; 96375; 99285; J1170; J2405

== ENCOUNTER 2022-03-22 05:44 | Day surgery (SDC) | payer MEDICARE, OTHER ==
[2022-03-22] MEDS ORDERED: Lactated Ringers 1,000 ML IV SCH (06:30)
[2022-03-22 06:44] VITALS: BP 111/77; PULSE 103; O2SAT 97
[2022-03-22] MEDS ORDERED: Lactated Ringers 1,000 ML IV ONE (07:01)
[2022-03-22] MEDS ORDERED: Sodium Chloride 0.9% 1000 ML 1,000 ML ONE (07:07)
[2022-03-22] MEDS ORDERED: Sodium Chloride 0.9% 1000 ML 1,000 ML IV SCH (07:15)
== END 2022-03-22 08:42 | disposition home or self-care (01) ==
LOC: SDC 05:44
PROVIDERS: ATTEND Family Medicine
DX: Z53.8 Procedure and treatment not carried out for other reasons (principal)